=== PATIENT | male | born 1950 | race Caucasian/White ===

== ENCOUNTER 2020-08-28 08:20 | Outpatient (REF) | payer MEDICARE, SELFPAY ==
[2020-08-28 09:18] LABS: Hematocrit 43.9 % (42-52); Hemoglobin 14.5 g/dl (14.0-18.0); Mean Corpuscular Hemoglobin 28.6 pg (27.0-33.0); Mean Corpuscular Volume 86.6 fL (80-98); Mean Platelet Volume 11.1 fL (9.4-12.4); Platelet Count 191 X10*3/uL (160-400); Red Blood Count 5.07 X10*6/uL (4.60-5.80); Red Cell Distribution Width 14.1 % (11.0-16.0); White Blood Count 8.9 X10*3/uL (4.8-10.8)
[2020-08-28 09:35] LABS: Estimated Average Glucose 169 mg/dL; Hemoglobin A1c % 7.5 %
[2020-08-28 09:43] LABS: Alanine Aminotransferase 30 U/L (0-40); Albumin Level 4.1 g/dL (3.5-5.0); Alkaline Phosphatase 148 U/L (39-117); Anion Gap 13 (12-20); Aspartate Amino Transferase 15 U/L (5-37); Bilirubin Total 0.6 mg/dL (0.0-1.0); Blood Urea Nitrogen 14 mg/dL (9-16); Carbon Dioxide 24 mmol/L (22-29); Chloride 108 mmol/L (96-108); Cholesterol 158 mg/dL; Estimated Glomerular Filt Rate > 60; Glucose Fasting 140 mg/dL (60-99); HDL Cholesterol 42 mg/dL; LDL Cholesterol Calculated 93 mg/dl; Potassium 4.1 mmol/L (3.3-5.1); Sodium 141 mmol/L (135-145); Total Protein 7.1 g/dL (6.5-8.0); Triglycerides 118 mg/dL
[2020-08-28 10:04] LABS: Prostate Specific Antigen Scr 2.43 ng/mL (<0.05-4.0)
[2020-08-28 10:23] LABS: Creatinine Urine 130.71 mg/dL; Microalbum/Creatinine Ratio Ur 3.8 ug/mg cr
== END 2020-08-28 08:21 | disposition home or self-care (01) ==
LOC: HO.LAB 08:20
PROVIDERS: PCP Internal Medicine; Visit Provider Internal Medicine
DX: Z12.5 Encounter for screening for malignant neoplasm of prostate (principal); R00.2 Palpitations; R73.9 Hyperglycemia, unspecified
CPT/HCPCS: 36415; 80053; 80061; 82043; 83036; 84153; 85027

== ENCOUNTER → 2020-09-09 08:36 | Outpatient (REF) | payer MEDICARE, SELFPAY ==
--- NOTE | 2020-09-09 08:39 | CA_ITS ---
Transthoracic Echocardiogram Patient (Last, First, Middle): Mary Ann Joyce, Gender: Male Date of : 1950 Age: 70 Procedure Date: 09/09/2020 Procedure Type: Transthoracic Echocardiogram Location: OP Height: 165.1 cm Weight: 82.56 kg BSA: 1.90 m2 Heart Rate: bpm BP: 140 / 90 mmHg Disc Pad Knockout Worker: CRICKET Referring MD: Radha Culp MD Burnisher And Bumper: Chaz Gordon MD Symptoms: I45.10 - Unspecified right bundle-branch block Study Quality: Fair ECG Rhythm: Sinus Conclusions: - 1. Normal LV systolic function with impaired relaxation filling pattern 2. Normal cardiac valvular Doppler 3. Normal RV systolic pressure 4. No pericardial effusion Findings Left Ventricle Normal left ventricular size, thickness, and systolic function. The visually estimated ejection fraction is between 60-65%. Spectral Doppler is indicative of an impaired relaxation filling pattern. E/E prime ratio is between 8 and 15 consistent with indeterminate filling pressures. Right Ventricle Normal right ventricular cavity size and systolic function. Atria The left atrium is normal in size. There is no evidence of interatrial shunt. The right atrium is normal in size. Aortic Valve The aortic valve structure and function is likely normal. There is no aortic valve stenosis. There is no aortic valve regurgitation. Mitral Valve Likely normal mitral valve structure and function. There is trace mitral valve regurgitation. There is no mitral valve stenosis. Pulmonic Valve The pulmonic valve was not well visualized. Tricuspid Valve Likely normal tricuspid valve structure and function. There is trace tricuspid valve regurgitation. The right ventricular systolic pressure is normal. The right ventricular systolic pressure is 17 mmHg. Normal right atrial pressure. There is no evidence of pulmonary hypertension. Great Vessels All visible segments of the aorta are normal in size. The pulmonary artery was not well visualized. Venous The inferior vena cava is normal in size and collapses greater than 50% with inspiration. Pericardium/Pleural There is no evidence of pericardial effusion. Prior Study Comparison No previous study in the last 5 years for comparison Measurements 2D Linear Measurements IVSd: 1.22 0.6-0.9/0.6-1.0 cm LVIDd: 4.90 3.9-5.3/4.2-5.9 cm LVIDd Index: 2.58 2.4-3.2/2.2-3.1 cm/m2 LVIDs: 2.68 2.0-3.6 cm LVPWd: 1.07 0.7-1.1 cm Ao Root: 2.80 2.1-3.5 cm LA Diam: 3.90 2.7-3.8/3.0-4.0 cm LAIDs Index: 2.05 1.5-2.3 cm/m2 LV Mass: 264.21 67-162/88-224 g LV Mass Index: 139.06 43-95/49-115 g/m2 LVOT Diam: 2.00 3.0+(-)1.3 cm 2D Systolic Function EF 4C: 72.00 >55% EF 2C: 58.40 >55% EF BiP: 65.80 >55% Mitral Valve MV Pk E: 0.55 MV PK A: 0.90 MV Decel Time: 256.00 E/A: 0.60 E'Lateral: 6.38 E'Medial: 5.51 E/E' Med: 10.00 E/E' Lat: 8.70 PHT: 75.00 MVA PHT: 2.93 Decel [place]: 2.16 Aortic Valve AoV Pk Jesus: 1.33 AoV Pk Grad: 7.00 LVOT LVOT Pk Jesus: 1.02 LVOT Mn Jesus: 0.63 LVOT VTI: 0.21 LVOT Pk Grad: 4.00 LVOT Mn Grad: 2.00 LVOT Diam: 2.00 LVOT Area: 3.14 Diastolic Function MV Pk E: 0.55 MV Pk A: 0.90 E/A: 0.60 E'Medial: 5.51 E/E' Med: 10.00 E' Laterial: 6.38 E/E' Lat: 8.70 Tricuspid Valve TR Pk Jesus: 1.89 TR Pk Grad: 14.00 RA Press: 3.00 RVSP: 17.00 Great Vessels Aorta Ao Root-2D: 2.80 2.0-3.7 cm Ao Asc: 3.30 2.1-3.4 cm Updated in Other Vendor System with Status of Final Chaz Gordon MD electronically signed on 09/12/2020 12:28:13 PM with status of Final
== END ==
LOC: HO.CARD 08:36
PROVIDERS: PCP Internal Medicine; Visit Provider Internal Medicine
DX: I45.10 Unspecified right bundle-branch block (principal); I49.9 Cardiac arrhythmia, unspecified
CPT/HCPCS: 93306

== ENCOUNTER 2020-09-30 08:54 | Outpatient (REF) | payer MEDICARE, SELFPAY ==
--- NOTE | ~2020-09-30 | US_ITS ---
EXAMINATION: US ABDOMINAL AORTA CLINICAL INFORMATION: Family history of ischemic heart disease. COMPARISON: None. TECHNIQUE: Grayscale, color Doppler and spectral Doppler evaluation of the abdominal aorta. FINDINGS: The aorta is normal in caliber. The measurements of the aorta in maximum AP and transverse dimensions respectively are as follows: PROXIMAL: 1.8 x 2.2 cm. MID: 2.0 x 2.0 cm. DISTAL: 1.4 x 2.0 cm. The measurements of the common iliac arteries in maximum AP dimension are as follows: RIGHT COMMON ILIAC ARTERY: 1.6 x 1.8 cm. LEFT COMMON ILIAC ARTERY: 1.1 x 1.7 cm. US/US abdominal aortic aneurysm IMPRESSION: Negative for abdominal aortic aneurysm.
== END 2020-09-30 08:55 | disposition home or self-care (01) ==
LOC: HO.US 08:54
PROVIDERS: Visit Provider Internal Medicine
DX: Z13.6 Encounter for screening for cardiovascular disorders (principal); Z82.49 Family history of ischemic heart disease and other diseases of the circulatory system
CPT/HCPCS: 76706

== ENCOUNTER 2021-04-04 08:58 | Outpatient (REF) | payer MEDICARE, SELFPAY ==
[2021-04-04 12:08] LABS: Alanine Aminotransferase 31 U/L (0-40); Albumin Level 4.1 g/dL (3.5-5.0); Alkaline Phosphatase 133 U/L (39-117); Anion Gap 12 (12-20); Aspartate Amino Transferase 16 U/L (5-37); Bilirubin Total 0.5 mg/dL (0.0-1.0); Blood Urea Nitrogen 18 mg/dL (9-16); Calcium 9.3 mg/dL (8.4-10.2); Carbon Dioxide 26 mmol/L (22-29); Chloride 106 mmol/L (96-108); Cholesterol 159 mg/dL; Estimated Glomerular Filt Rate > 60; Glucose Fasting 140 mg/dL (60-99); HDL Cholesterol 41 mg/dL; LDL Cholesterol Calculated 90 mg/dl; Potassium 4.3 mmol/L (3.3-5.1); Sodium 140 mmol/L (135-145); Total Protein 7.2 g/dL (6.5-8.0); Triglycerides 141 mg/dL
[2021-04-04 12:12] LABS: Estimated Average Glucose 146 mg/dL; Hemoglobin A1c % 6.7 %
[2021-04-04 12:40] LABS: Creatinine Urine 208.41 mg/dL; Microalbum/Creatinine Ratio Ur 3.3 ug/mg cr
== END 2021-04-04 08:59 | disposition home or self-care (01) ==
LOC: HO.HMGCLDS 08:58
PROVIDERS: PCP Internal Medicine; Visit Provider Internal Medicine
DX: E78.5 Hyperlipidemia, unspecified (principal); I10 Essential (primary) hypertension; I45.10 Unspecified right bundle-branch block; R73.9 Hyperglycemia, unspecified
CPT/HCPCS: 36415; 80053; 80061; 82043; 83036

== ENCOUNTER → 2021-08-05 12:57 | Outpatient (BNVA) | payer MEDICARE, SELFPAY | PROVIDERS: PCP Internal Medicine; Referring Provider Internal Medicine; Visit Provider Nurse Practitioner Family | DX: Z12.11 Encounter for screening for malignant neoplasm of colon (principal); K59.00 Constipation, unspecified | CPT/HCPCS: 99202 ==

== ENCOUNTER 2021-08-27 08:04 | Outpatient (REF) | payer MEDICARE, SELFPAY ==
[2021-08-27 09:35] LABS: Estimated Average Glucose 151 mg/dL; Hemoglobin A1c % 6.9 %
[2021-08-27 10:00] LABS: Alanine Aminotransferase 28 U/L (0-40); Alkaline Phosphatase 128 U/L (39-117); Anion Gap 13 (12-20); Aspartate Amino Transferase 18 U/L (5-37); Bilirubin Total 0.7 mg/dL (0.0-1.0); Blood Urea Nitrogen 16 mg/dL (9-16); Calcium 9.6 mg/dL (8.4-10.2); Carbon Dioxide 24 mmol/L (22-29); Chloride 108 mmol/L (96-108); Cholesterol 160 mg/dL; Estimated Glomerular Filt Rate > 60; Glucose Fasting 136 mg/dL (60-99); HDL Cholesterol 38 mg/dL; LDL Cholesterol Calculated 95 mg/dl; Potassium 4.2 mmol/L (3.3-5.1); Sodium 141 mmol/L (135-145); Total Protein 6.9 g/dL (6.5-8.0); Triglycerides 139 mg/dL
== END 2021-08-27 08:05 | disposition home or self-care (01) ==
LOC: HO.LAB 08:04
PROVIDERS: PCP Internal Medicine; Visit Provider Internal Medicine
DX: E11.9 Type 2 diabetes mellitus without complications (principal); I10 Essential (primary) hypertension; E78.5 Hyperlipidemia, unspecified
CPT/HCPCS: 36415; 80053; 80061; 83036

== ENCOUNTER → 2021-09-26 14:00 | Outpatient (BNVA) | payer MEDICARE, SELFPAY | PROVIDERS: PCP Internal Medicine; Referring Provider Internal Medicine; Visit Provider Internal Medicine | DX: Z01.810 Encounter for preprocedural cardiovascular examination (principal); I45.10 Unspecified right bundle-branch block; Z51.81 Encounter for therapeutic drug level monitoring; Z79.899 Other long term (current) drug therapy | CPT/HCPCS: 93005; 99202 ==

== ENCOUNTER 2022-04-04 09:40 | Day surgery (SDC) | payer MEDICARE, SELFPAY ==
[2022-03-28 13:36] VITALS: BMI 29.3
--- NOTE | 2022-04-03 13:14 | HO.ANESPROP2 ---
Documented by User: Nicole Avila NP 04/03/22 13:15 HPI - Anesthesia Eval Consult details Narrative: 71yo M for Colonoscopy PMFSH Active Problems Active Problems: All Active Problems (Updated 09/26/21 @ 14:59 by Anderson Farrell MD) H/O hernia repair (Acute) Preoperative cardiovascular examination (Acute) Encounter for monitoring anti-arrhythmic therapy (Acute) Annual physical exam (Acute) Constipation (Acute) DM2 (diabetes mellitus, type 2) (Acute) FHx: abdominal aortic aneurysm (Acute) Hyperlipidemia (Acute) Arrhythmia (Acute) RBBB (Acute) HTN (hypertension) (Acute) Tobacco abuse (Acute) Hyperglycemia (Acute) Palpitations (Acute) Past Medical History Medical History (Updated 09/26/21 @ 14:59 by Anderson Farrell MD) Annual physical exam Arrhythmia Constipation DM2 (diabetes mellitus, type 2) FHx: abdominal aortic aneurysm HTN (hypertension) Hyperglycemia Hyperlipidemia Palpitations Panic attack RBBB Tobacco abuse Family History Family History Father Stroke Mother No problems noted. Surgical History Surgical History (Updated 10/07/21 @ 09:18 by Elis Brothers RN) H/O inguinal hernia repair Hx of colonoscopy Social History Social History Household Members Other:: , Housing: House Alcohol intake: current Alcohol intake frequency: holidays/special occasions only Patient Tobacco Use Status: Current everyday Tobacco user Tobacco use type: Cigarette Cigarettes Per Day: 7 Years Smoked: 50 e-Cigarette/Vaping Use: Never Used Use of substances other than those prescribed or required for medical reasons: No Are you DNR?: No Advance Directives: No Advance Directives Information Provided: Yes Current occupational status: retired Cognitive needs: No Hearing needs: No Vision needs: Yes Meds Allergies Allergy/AdvReac Type Severity Reaction Status Date / Time No Known Allergies Allergy Verified 09/26/21 14:05 Exam Exam Date and Time: April 03, 2022 1314 Height,Weight and Vital Signs: Height 5 ft 6 in Weight 82.554 kg Assessment and Plan Assessment Anesthesia Assessment: Chart Reviewed Documented by User: Brandy Lugo MD 04/04/22 10:28 [facility] Past Medical History Medical History (Updated 09/26/21 @ 14:59 by Anderson Farrell MD) Annual physical exam Arrhythmia Constipation DM2 (diabetes mellitus, type 2) FHx: abdominal aortic aneurysm HTN (hypertension) Hyperglycemia Hyperlipidemia Palpitations Panic attack RBBB Tobacco abuse Family History Family History Father Stroke Mother No problems noted. Family history of problems with anesthesia: No Surgical History Surgical History (Updated 10/07/21 @ 09:18 by Elis Brothers RN) H/O inguinal hernia repair Hx of colonoscopy History of Problems with Anesthesia: No Social History Social History Household Members Other:: , Housing: House Alcohol intake: current Alcohol intake frequency: holidays/special occasions only Patient Tobacco Use Status: Current everyday Tobacco user Tobacco use type: Cigarette Cigarettes Per Day: 7 Years Smoked: 50 e-Cigarette/Vaping Use: Never Used Use of substances other than those prescribed or required for medical reasons: No Are you DNR?: No Advance Directives: No Advance Directives Information Provided: Yes Current occupational status: retired Cognitive needs: No Hearing needs: No Vision needs: Yes Meds Allergies Allergy/AdvReac Type Severity Reaction Status Date / Time No Known Allergies Allergy Verified 09/26/21 14:05 Exam Airway Mallampati Class: II (Multiole loose including front top on left side) TM Dist: >3cm Neck ROM: Full Heart: rrr Lungs: cta Assessment and Plan Assessment Anesthesia Assessment: Anesthesia Plan Discussed Final Anesthetic Review Family History of Problems with Anesthesia: No History of Problems with Anesthesia: No NPO: Yes ASA Class: III Final Preanesthetic Review: No Changes in Pt Med Stat, Meds/Allgs Chart Reviewed and Consent Obtained/Reviewed Patient Risk: Intermediate Procedure Risk: Intermediate Anesthetic Plan Anesthetic Plan: MAC: Disposition: Standard PACU
[2022-04-04 10:28] LABS: Glucose, Whole Blood 144 mg/dL (60-115)
[2022-04-04] MEDS: Lactated Ringers 1,000 ML 100 ML IVCONT (10:37)
[2022-04-04 10:38] VITALS: BP 149/78; PULSE 68; RESP 16; TEMP 36.6; O2SAT 98
--- NOTE | 2022-04-04 11:01 | P.HPSUR_ITS ---
Pre-Procedural Eval Section A Date of Service: 04/04/22 Section B Chief Complaint: screening Relevant Family History (Specify if Yes): No Relevant Social History: Tobacco Use Present Medications: see Short Stay Collaborative assessment Medical History: Significant History (Arrhythmia Constipation DM2 (diabetes mellitus, type 2) FHx: abdominal aortic aneurysm HTN (hypertension) Hyperglycemia Hyperlipidemia Palpitations Panic attack RBBB Tobacco abuse) History of Previous Operations: Relevant previous surgery/procedure and date(s) (inguinal hernia repair ) Allergies: Allergies Allergy/AdvReac Type Severity Reaction Status Date / Time No Known Allergies Allergy Verified 09/26/21 14:05 Review of Systems Sugical H&P ROS: Negative: Constitution, Cardiovascular, Respiratory, Neurological, Psychiatric, Hem-Onc, Allergic/Immunologic, Gastrointestinal, Candy tourinary, Musculoskeletal, Integumentary, Endocrine and Eyes/Ears/Nose/Throat Exam Surgical H&P Exam: Normal: HEENT, Normal: Heart, Normal: Lungs, Normal: Extremities, Normal: Abdomen, Normal: Skin and Normal: Neurological Plan Diagnosis/Plan: Unchanged I have reviewed the history and physical and performed a pertinent physical examination on my patient. No changes have occurred unless specified.
--- NOTE | 2022-04-04 11:02 | P.OP_ITS ---
Operative Note Operative Note Date of Service: 04/04/22 Narrative: Operative Information Procedure Description: Colonoscopy Indication: screening Anesthesia: MAC COLONOSCOPY Instrument: Olympus variable stiffness adult scope 190L Colonoscopy Monitoring: Vital signs and clinical assessment, continuous EKG monitoring, Pulse oximetry, Carbon Dioxide monitoring and blood pressure monitoring were done throughout the procedure. Colon withdrawal time was 13 minutes. Procedure: The patient was placed in the left lateral decubitis position and pre-procedure medications were administered. After a digital rectal examination of the ano-rectum, the video colonoscope was inserted into the rectum and advanced through the colon to the cecum/TI. The colonoscope was slowly withdrawn in a retrograde panoramic fashion and the colon mucosa was carefully examined including a retroflexed view of the rectum. Findings and interventions are described below. Procedure Difficulty: easy Findings: Terminal Ileum-normal Cecum:normal Ascending Colon: x 2 sessile polyps removed with cold snare, measuring 9-13 mm. Large polyp with 2 clips placed for hemostasis Transverse Colon - 5-8 mm sessile polyp removed with cold forceps Descending Colon:normal Sigmoid Colon: normal Rectum: Retroflexion with medium sized internal hemorrhoids, grade 2 Anorectum - internal hemorrhoids seen at anal verge Colon preparation: [place] Bowel Preparation Scale Right colon; 2 Transverse colon: 2 Left colon; 2 (0 = Unprepared colon segment with mucosa not seen due to solid stool that cannot be cleared. 1 = Portion of mucosa of the colon segment seen, but other areas of the colon segment not well seen due to staining, residual stool and/or opaque liquid. 2 = Minor amount of residual staining, small fragments of stool and/or opaque liquid, but mucosa of colon segment seen well. 3 = Entire mucosa of colon segment seen well with no residual staining, small fragments of stool or opaque liquid) Impression and Post Procedure Diagnosis: polyps internal hemorrhoids Plan: High fiber diet leaflet Avoid straining at stool, epsom salts and sitz bath, anusol supps or cream Repeat Colonoscopy in 3 years or earlier if clinically indicated Above findings were reviewed with the patient and relevant handouts were provided if indicated.
[2022-04-04 11:40] VITALS: BP 118/63; PULSE 64; RESP 16; TEMP 36.2; O2SAT 95
[2022-04-04 11:55] VITALS: BP 95/69; PULSE 62; RESP 16; O2SAT 96
== END 2022-04-04 13:05 | disposition home or self-care (01) ==
PROVIDERS: PCP Internal Medicine; Visit Provider Internal Medicine Gastroenterology
PROC: 0DJD8ZZ Inspection of Lower Intestinal Tract, Via Natural or Artificial Opening Endoscopic (ICD-10-PCS; CPT 45378; principal; 2022-04-04 11:00)
DX: Z12.11 Encounter for screening for malignant neoplasm of colon (principal); D12.2 Benign neoplasm of ascending colon; K63.5 Polyp of colon; K64.1 Second degree hemorrhoids; K59.00 Constipation, unspecified; I45.10 Unspecified right bundle-branch block; I10 Essential (primary) hypertension; E78.5 Hyperlipidemia, unspecified; E11.9 Type 2 diabetes mellitus without complications; F17.210 Nicotine dependence, cigarettes, uncomplicated
CPT/HCPCS: 45385; 45380; 82947; 88305

== ENCOUNTER 2022-08-24 09:46 | Outpatient (REF) | payer MEDICARE, SELFPAY ==
[2022-08-24 10:51] LABS: Estimated Average Glucose 154 mg/dL
[2022-08-24 10:58] LABS: Alanine Aminotransferase 23 U/L (0-40); Albumin Level 4.1 g/dL (3.5-5.0); Alkaline Phosphatase 124 U/L (39-117); Anion Gap 13 (12-20); Aspartate Amino Transferase 18 U/L (5-37); Bilirubin Total 0.5 mg/dL (0.0-1.0); Blood Urea Nitrogen 13 mg/dL (9-16); Calcium 9.4 mg/dL (8.4-10.2); Carbon Dioxide 25 mmol/L (22-29); Chloride 110 mmol/L (96-108); Cholesterol 257 mg/dL; Estimated Glomerular Filt Rate > 60; Glucose Fasting 139 mg/dL (60-99); HDL Cholesterol 38 mg/dL; LDL Cholesterol Calculated 182 mg/dl; Potassium 4.5 mmol/L (3.3-5.1); Sodium 143 mmol/L (135-145); Total Protein 6.9 g/dL (6.5-8.0); Triglycerides 187 mg/dL
[2022-08-24 11:40] LABS: Microalbum/Creatinine Ratio Ur 4.5 ug/mg cr
== END 2022-08-24 09:47 | disposition home or self-care (01) ==
LOC: HO.LAB 09:46
PROVIDERS: PCP Internal Medicine; Visit Provider Internal Medicine
DX: E78.5 Hyperlipidemia, unspecified (principal); E11.9 Type 2 diabetes mellitus without complications
CPT/HCPCS: 36415; 80053; 80061; 82043; 83036

== ENCOUNTER 2022-11-20 08:30 | Outpatient (REF) | payer MEDICARE, SELFPAY ==
[2022-11-20 09:16] LABS: Estimated Average Glucose 140 mg/dL; Hemoglobin A1c % 6.5 %
== END 2022-11-20 08:31 | disposition home or self-care (01) ==
LOC: HO.LAB 08:30
PROVIDERS: PCP Internal Medicine; Visit Provider Internal Medicine
DX: E11.9 Type 2 diabetes mellitus without complications (principal); E78.5 Hyperlipidemia, unspecified; I10 Essential (primary) hypertension; Z72.0 Tobacco use
CPT/HCPCS: 36415; 80053; 80061; 82043; 83036; 85025

== ENCOUNTER 2022-11-29 11:20 | Outpatient (AMB) | payer MEDICARE, SELFPAY ==
[2022-11-29 11:45] VITALS: BP 130/78; PULSE 72; O2SAT 96; BMI 28.6
--- NOTE | 2022-11-29 11:45 | MHC.PC.OV ---
Vital Signs 11/29/22 11:45 Height 5 ft 6 in Weight 177 lb BMI 28.6 BP 130/78 Blood Pressure Location Lt brachial Position Sitting Pulse 72 Pulse Source Pulse Oximeter Pulse Oximetry (%) 96 Oxygen Delivery Method Room Air Intake Visit Reasons: Annual PE/DM Intake Note: Pt is here today for PE. Allergies No Known Allergies Allergy (Verified 11/29/22 11:46) Medication List - Last Reconciled 11/29/22 by Radha Culp MD amlodipine 10 mg PO DAILY atorvastatin 80 mg PO BEDTIME bisacodyl (Dulcolax (bisacodyl)) 10 mg (2 x 5 mg) PO ONCE 1 day ciclopirox 8% 1 appl topical BEDTIME 4 weeks metformin ER 750 mg PO DAILY omeprazole 20 mg PO DAILY polyethylene glycol 3350 (Miralax) 238 grams PO ONCE Tobacco use date assessed: 11/29/22 Dental Screening Dental Screen Date: 11/29/22 Did you have a dental visit in the last 12 months?: Yes Did you have a dental problem in the last 6 months where you did not have access to dental care?: No Was dental information given to patient?: Patient has dentist HPI Annual PE/DM HPI Details Patient presents for physical PFSH Medical History (Updated 11/29/22 @ 13:14 by Radha Culp MD) Annual physical exam Arrhythmia DM2 (diabetes mellitus, type 2) FHx: abdominal aortic aneurysm HTN (hypertension) Hyperlipidemia Panic attack RBBB Tobacco abuse Surgical History (Updated 08/30/22 @ 10:22 by Radha Culp MD) H/O inguinal hernia repair Hx of colonoscopy Family History Father Stroke Mother No problems noted. Social History Household Members Other:: , Housing: House Alcohol intake: current Alcohol intake frequency: holidays/special occasions only Patient Tobacco Use Status: Current everyday Tobacco user Tobacco use type: Cigarette Cigarettes Per Day: 7 Years Smoked: 50 e-Cigarette/Vaping Use: Never Used Current occupational status: retired Cognitive needs: No Hearing needs: No Vision needs: Yes Questionnaire Thrive Questionnaire Date Thrive assessed: 08/30/22 JADEN-7 AMB Questionnaire JADEN-7 Date JADEN - 7 assessed: 08/30/22 Source: Developed by Drs. Dani Giordano, Effie Masterson, Tio Mclean and colleagues, with an educational nika from [employer]. Review of Systems Const All systems reviewed & are unremarkable except as noted in HPI and below Reports no additional complaints Eyes Reports no additional complaints ENT Reports no additional complaints Card Reports no additional complaints Resp Reports no additional complaints GI Reports no additional complaints Reports no additional complaints Physical exam (Primary Care) Vital Signs: Last Vital Signs Pulse 72 11/29/22 11:45 BP 130/78 11/29/22 11:45 Pulse Ox 96 11/29/22 11:45 Oxygen Delivery Method Room Air 11/29/22 11:45 BMI result Body Mass Index 28.6 Tobacco/Smoking Status: Tobacco use Status Tobacco use date assessed 11/29/22 11/29/22 11:46 Patient Tobacco Use Status Current everyday Tobacco 11/29/22 11:46 Tobacco use type Cigarette 11/29/22 11:46 e-Cigarette/Vaping Use Never Used 11/29/22 11:46 Thrive Assessment: Date of Thrive Assessment Date Thrive assessed 08/30/22 11/29/22 11:46 Const General: no acute distress HENMT Ears: hearing grossly normal bilaterally Mouth: Normal oral and palatal mucosa present Eyes General: appearance normal, both eyes and all related structures Neck Neck: Yes no lymphadenopathy and Yes supple Resp Effort & Inspection: normal respiratory effort Auscultation: clear to auscultation bilaterally Cardio Rhythm: regular rhythm Heart sounds: S1 normal heart sound present and S2 normal heart sound present GI Inspection: Yes normal to inspection Palpation (GI): Soft to palpation Percussion: Yes normal to percussion Auscultation: normal bowel sounds Extrem General: Yes no clubbing, cyanosis or edema Assessment and Plan Assessment & Plan (1) FHx: abdominal aortic aneurysm: Comment: negative US for AAA 2020 Code(s): Z82.49 - Family history of ischemic heart disease and other diseases of the circulatory system (2) DM2 (diabetes mellitus, type 2): Code(s): E11.9 - Type 2 diabetes mellitus without complications Plan: A1c is 6.5, continue metformin ADA diet regular exercise follow-up in 6 months with a fasting labs before (3) Hyperlipidemia: Code(s): E78.5 - Hyperlipidemia, unspecified Plan: Continue statin (4) HTN (hypertension): Code(s): I10 - Essential (primary) hypertension Plan: Continue amlodipine, patient refused to start ACEI Orders: Orders Comprehensive [place]. Panel Fast 6 Months E11.9 - Type 2 diabetes mellitus without complications, E78.5 - Hyperlipidemia, unspecified, I10 - Essential (primary) hypertension Hemoglobin A1c 6 Months E11.9 - Type 2 diabetes mellitus without complications, E78.5 - Hyperlipidemia, unspecified, I10 - Essential (primary) hypertension Lipid Panel 6 Months E11.9 - Type 2 diabetes mellitus without complications, E78.5 - Hyperlipidemia, unspecified, I10 - Essential (primary) hypertension Microalbumin, Random (w Creat) 6 Months E11.9 - Type 2 diabetes mellitus without complications, E78.5 - Hyperlipidemia, unspecified, I10 - Essential (primary) hypertension Medications: New nicotine (Nicotrol) 1 inh inhalation Q2-4H PRN 168 ea 1RF nicotine cravings Coding Level of Care Code Est Pt Prev Care >65y(27404) Diagnoses FHx: abdominal aortic aneurysm Z82.49 DM2 (diabetes mellitus, type 2) E11.9 Hyperlipidemia E78.5 HTN (hypertension) I10
== END 2022-11-29 13:15 | disposition home or self-care (01) ==
PROVIDERS: Visit Provider Internal Medicine
DX: Z00.00 Encounter for general adult medical examination without abnormal findings (principal); Z82.49 Family history of ischemic heart disease and other diseases of the circulatory system; E11.9 Type 2 diabetes mellitus without complications; I10 Essential (primary) hypertension; E78.5 Hyperlipidemia, unspecified
CPT/HCPCS: 99397

== ENCOUNTER 2023-01-16 09:12 | Outpatient (AMB) | payer MEDICARE, SELFPAY ==
--- NOTE | 2023-01-16 10:02 | AM.OFFWIN_ITS ---
Intake Vital Signs 01/16/23 10:03 Height 5 ft 6 in Weight 180 lb BMI 29.0 BP 120/76 Blood Pressure Location Rt brachial Position Sitting Pulse 68 Pulse Source Pulse Oximeter Temp 97.4 F Temp Source Temporal Artery Scan Pulse Oximetry (%) 98 Oxygen Delivery Method Room Air Intake Visit Reasons: EST/right arm numbness(lobby) Intake Note: Patient here for left arm numbness which has been going on for about 7-8 days. He is wondering if it could stress related as he use to have panic attacks. Patient Tobacco Use Status: Current everyday Tobacco user Allergies No Known Allergies Allergy (Verified 01/16/23 10:04) Do you need a note to return to daycare/school/sports/work: No HPI EST/right arm numbness(lobby) HPI Details 72-year-old gentleman presents today with an 8 day history of a sensation of left arm heaviness. He reports this extends from his left shoulder, down to his left wrist. He denies any numbness, tingling, or weakness. He denies any trauma or incident which incited symptoms. He denies any neck pain or injury. He denies any shortness of breath, chest pain, palpitations, or any other symptoms. [facility] Medical History Annual physical exam Arrhythmia DM2 (diabetes mellitus, type 2) FHx: abdominal aortic aneurysm HTN (hypertension) Hyperlipidemia Panic attack RBBB Tobacco abuse Surgical History H/O inguinal hernia repair Hx of colonoscopy Family History Father Stroke Mother No problems noted. Social History Household Members Other:: , Housing: House Alcohol intake: current Alcohol intake frequency: holidays/special occasions only Patient Tobacco Use Status: Current everyday Tobacco user Tobacco use type: Cigarette Cigarettes Per Day: 7 Years Smoked: 50 e-Cigarette/Vaping Use: Never Used Current occupational status: retired Cognitive needs: No Hearing needs: No Vision needs: Yes Review of Systems Const All systems reviewed & are unremarkable except as noted in HPI and below ENT Reports Normal hearing present Neuro Reports Normal hearing present Physical Exam Vital Signs: Last Vital Signs Temp 97.4 F 01/16/23 10:03 Pulse 68 01/16/23 10:03 BP 120/76 01/16/23 10:03 Pulse Ox 98 01/16/23 10:03 Oxygen Delivery Method Room Air 01/16/23 10:03 BMI result Body Mass Index 29.0 Const General: cooperative, healthy appearing, comfortable and no acute distress Orientation/consciousness: patient oriented x3 HEENT Head: Yes normal to inspection Eyes Pupils: Equal, round and reactive pupils present Neck Other: Negative Spurling's Neck: Yes full ROM and Yes no lymphadenopathy Resp Effort & Inspection: normal respiratory effort and able to speak in complete sentences Auscultation: clear to auscultation bilaterally Cardio Jugular venous distension: no JVD Palpation: normal PMI Rate: regular rate Rhythm: regular rhythm Skin General skin exam: no rashes or lesions noted Neuro General: patient oriented x3, gait normal, tone normal, Normal light touch and pain sensation, no focal motor deficits, CN's II-XI intact bilaterally and deep tendon reflexes 2+ bilaterally Cranial nerves: Yes Equal, round and reactive pupils present, Yes Normal accommodation reflex present, Yes Bilaterally intact EOM present, Yes Normal facial strength present, Yes Midline tongue present and Yes Normal hearing present Cognition (Neuro): normal cognition Motor exam (neuro): 5/5 motor strength present throughout and Normal motor muscle tone present throughout Extrem General: Yes full ROM and Yes capillary refill normal Left upper extremity: no joint enlargement and shoulder/upper arm Details: inspection abnormal and normal ROM Psych Appearance: grossly normal Mental Status: mental status grossly normal Speech and movement: Normal speech and movement present Assessment & Plan Assessment & Plan (1) Arm heaviness: Code(s): R29.898 - Other symptoms and signs involving the musculoskeletal system Plan: Patient with reported 8 day history of intermittent left arm sensation of heaviness. His neurological and vascular assessment is normal on exam today. NIH scale is 0. Vitals are normal. I will notify Dr. Culp, patient's PCP for p ossible neuro referral. I discussed with patient that if the symptoms recur and do not resolve, or if symptoms worsen or new symptoms develop, he should go to the ED for evaluation. He verbalizes understanding and agrees to plan. Coding Level of Care Code Est Pt Level 3 (75158) Diagnoses Arm heaviness R29.898
[2023-01-16 10:03] VITALS: BP 120/76; PULSE 68; TEMP 36.3; O2SAT 98; BMI 29.0
== END 2023-01-16 10:43 | disposition home or self-care (01) ==
PROVIDERS: PCP Internal Medicine; Visit Provider Nurse Practitioner Family
DX: R29.898 Other symptoms and signs involving the musculoskeletal system (principal)
CPT/HCPCS: 99213

== ENCOUNTER 2023-02-22 12:16 | Outpatient (AMB) | payer MEDICARE, SELFPAY ==
--- NOTE | 2023-02-22 12:30 | MHC.PC.OV ---
Vital Signs 02/22/23 12:31 Height 5 ft 6 in Weight 181 lb BMI 29.2 BP 120/80 Blood Pressure Location Rt brachial Position Sitting Pulse 80 Pulse Source Pulse Oximeter Pulse Oximetry (%) 97 Oxygen Delivery Method Room Air Intake Visit Reasons: Follow up on arm numbness Intake Note: Pt is here today for a follow up visit on pain and heaviness in his L arm. Allergies No Known Allergies Allergy (Verified 02/22/23 12:34) Medication List - Last Reconciled 02/22/23 by Radha Culp MD amlodipine 10 mg PO DAILY atorvastatin 80 mg PO BEDTIME bisacodyl (Dulcolax (bisacodyl)) 10 mg (2 x 5 mg) PO ONCE 1 day ciclopirox 8% 1 appl topical BEDTIME 4 weeks metformin ER 750 mg PO DAILY nicotine (Nicotrol) 1 inh inhalation Q2-4H PRN omeprazole 20 mg PO DAILY polyethylene glycol 3350 (Miralax) 238 grams PO ONCE Tobacco use date assessed: 11/29/22 HPI Follow up on arm numbness HPI Details Pt c/o chronic L hand pain and numbness for a few weeks worse at night. Hypertension hyperlipidemia and type 2 diabetes are controlled on current medications. [facility] Medical History Annual physical exam DM2 (diabetes mellitus, type 2) FHx: abdominal aortic aneurysm Arrhythmia RBBB Tobacco abuse Panic attack Hyperlipidemia HTN (hypertension) Surgical History Hx of colonoscopy H/O inguinal hernia repair Family History Father Stroke Mother No problems noted. Social History Household Members Other:: , Housing: House Alcohol intake: current Alcohol intake frequency: holidays/special occasions only Patient Tobacco Use Status: Current everyday Tobacco user Tobacco use type: Cigarette Cigarettes Per Day: 7 Years Smoked: 50 e-Cigarette/Vaping Use: Never Used Current occupational status: retired Cognitive needs: No Hearing needs: No Vision needs: Yes Questionnaire Thrive Questionnaire Date Thrive assessed: 08/30/22 JADEN-7 AMB Questionnaire JADEN-7 Date JADEN - 7 assessed: 08/30/22 Source: Developed by Drs. Dani Giordano, Effie Masterson, Tio Mclean and colleagues, with an educational nika from [employer]. Review of Systems Const All systems reviewed & are unremarkable except as noted in HPI and below Reports no additional complaints Eyes Reports no additional complaints ENT Reports no additional complaints Card Reports no additional complaints Resp Reports no additional complaints GI Reports no additional complaints Reports no additional complaints Physical exam (Primary Care) Vital Signs: Last Vital Signs Pulse 80 02/22/23 12:31 BP 140/80 H 02/22/23 12:31 Pulse Ox 97 02/22/23 12:31 Oxygen Delivery Method Room Air 02/22/23 12:31 BMI result Body Mass Index 29.2 Tobacco/Smoking Status: Tobacco use Status Tobacco use date assessed 11/29/22 02/22/23 12:30 Patient Tobacco Use Status Current everyday Tobacco 02/22/23 12:30 Tobacco use type Cigarette 02/22/23 12:30 e-Cigarette/Vaping Use Never Used 02/22/23 12:30 Thrive Assessment: Date of Thrive Assessment Date Thrive assessed 08/30/22 02/22/23 12:30 Const General: no acute distress HENMT Ears: hearing grossly normal bilaterally Mouth: Normal oral and palatal mucosa present Resp Effort & Inspection: normal respiratory effort Auscultation: clear to auscultation bilaterally Cardio Rhythm: regular rhythm Heart sounds: S1 normal heart sound present and S2 normal heart sound present Extrem Right upper extremity: wrist (Tinel's positive L wrist) Assessment and Plan Assessment & Plan (1) Carpal tunnel syndrome of left wrist: Code(s): G56.02 - Carpal tunnel syndrome, left upper limb Plan: Obtain nerve conduction study to evaluate (2) HTN (hypertension): Code(s): I10 - Essential (primary) hypertension Plan: Continue current medications (3) DM2 (diabetes mellitus, type 2): Code(s): E11.9 - Type 2 diabetes mellitus without complications Plan: Continue ADA diet and metformin (4) Hyperlipidemia: Code(s): E78.5 - Hyperlipidemia, unspecified Plan: Continue statin Orders: Orders NE nerve conduction velocity Today G56.02 - Carpal tunnel syndrome, left upper limb Coding Level of Care Code Est Pt Level 4 (86638) Diagnoses Carpal tunnel syndrome of left wrist G56.02 HTN (hypertension) I10 DM2 (diabetes mellitus, type 2) E11.9 Hyperlipidemia E78.5
[2023-02-22 12:31] VITALS: BP 120/80; PULSE 80; O2SAT 97; BMI 29.2
== END 2023-02-22 13:13 | disposition home or self-care (01) ==
PROVIDERS: PCP Internal Medicine; Visit Provider Internal Medicine
DX: G56.02 Carpal tunnel syndrome, left upper limb (principal); I10 Essential (primary) hypertension; E11.9 Type 2 diabetes mellitus without complications; E78.5 Hyperlipidemia, unspecified
CPT/HCPCS: 99214

== ENCOUNTER 2023-03-01 10:14 | Outpatient (REF) | payer MEDICARE, SELFPAY ==
--- NOTE | 2023-03-01 10:18 | EMG_ITS ---
Left median and ulnar, motor and sensory studies were performed. Left radial sensory study was performed and paraspinal muscles were tested with a needle. IMPRESSION: 1. Yvns-jn-xsehyavv left median neuropathy across carpal tunnel. 2. Ozon-ru-nrztowfc left ulnar neuropathy across cubital tunnel. MD ISAURO Fajardo/LARISA / [phone]
== END 2023-03-01 10:15 | disposition home or self-care (01) ==
LOC: HO.NEURO 10:14
PROVIDERS: Visit Provider Internal Medicine
DX: G56.02 Carpal tunnel syndrome, left upper limb (principal)
CPT/HCPCS: 95886; 95909

== ENCOUNTER 2023-12-03 11:29 | Outpatient (AMB) | payer MEDICARE, SELFPAY ==
[2023-12-03 11:43] VITALS: BP 120/78; PULSE 73; O2SAT 97; BMI 29.0
--- NOTE | 2023-12-03 11:43 | A.OFFPC_ITS ---
Vital Signs 12/03/23 11:43 Height 5 ft 6 in Weight 180 lb BMI 29.0 BP 120/78 Blood Pressure Location Lt brachial Position Sitting Pulse 73 Pulse Source Pulse Oximeter Pulse Oximetry (%) 97 Oxygen Delivery Method Room Air Intake Visit Reasons: Annual PE Intake Note: Pt is here for his annual PE Allergies No Known Allergies Allergy (Verified 12/03/23 12:07) Medication List - Last Reconciled 12/03/23 by Radha Culp MD amlodipine 10 mg PO DAILY atorvastatin 80 mg PO BEDTIME bisacodyl (Dulcolax (bisacodyl)) 10 mg (2 x 5 mg) PO ONCE 1 day ciclopirox 8% 1 appl topical BEDTIME 4 weeks metformin ER 750 mg PO DAILY nicotine (Nicotrol) 1 inh inhalation Q2-4H PRN omeprazole 20 mg PO DAILY polyethylene glycol 3350 (Miralax) 238 grams PO ONCE Tobacco use date assessed: 12/03/23 Fall risk assessment: No Falls in past year Last assessed Fall Risk: 12/03/23 Dental Screening Dental Screen Date: 12/03/23 Did you have a dental visit in the last 12 months?: Yes Did you have a dental problem in the last 6 months where you did not have access to dental care?: No Was dental information given to patient?: Patient has dentist HPI Annual PE HPI Details Pt presents for PE. HTN , hyperlipid, DM 2 stable on meds. Pt c/o chronic R knee pain for a few months, worse when walking. Patient denies any injury or soft tissue swelling. [facility] Medical History (Updated 12/03/23 @ 12:51 by Radha Culp MD) Annual physical exam DM2 (diabetes mellitus, type 2) FHx: abdominal aortic aneurysm Arrhythmia RBBB Tobacco abuse Panic attack Hyperlipidemia HTN (hypertension) Surgical History Hx of colonoscopy H/O inguinal hernia repair Family History Father Stroke Mother No problems noted. Social History Household Members Other:: , Housing: House Alcohol intake: current Alcohol intake frequency: holidays/special occasions only Patient Tobacco Use Status: Current everyday Tobacco user Tobacco use type: Cigarette Cigarettes Per Day: 7 Years Smoked: 50 e-Cigarette/Vaping Use: Never Used service: No Current occupational status: retired Current occupational exposures/hazards: No Cognitive needs: No Hearing needs: No Vision needs: Yes Questionnaire PHQ-9 Over the last 2 weeks, how often have you been bothered by any of the following problems? 1. Little interest or pleasure in doing things: not at all 2. Feeling down, depressed, or hopeless: not at all 3. Trouble falling or staying asleep, or sleeping too much: not at all 4. Feeling tired or having little energy: not at all 5. Poor appetite or overeating: not at all 6. Feeling bad about yourself - or that you are a failure or have let yourself or your family down: not at all 7. Trouble concentrating on things, such as reading the newspaper or watching television: not at all 8. Moving or speaking so slowly that other people could have noticed. Or the opposite - being so fidgety or restless that you have been moving around a lot more than usual: not at all 9. Thoughts that you would be better off or of hurting yourself in some way: not at all Total score: 0 Depression Screening Interpretation: Negative Depression Screening Done: Yes 78265 - PHQ-9 Billing: Yes Source: Developed by Drs. Dani Giordano, Effie Masterson, Tio Mclean and colleagues, with an educational nika from [employer]. Thrive Questionnaire Date Thrive assessed: 12/03/23 I am a: Patient What is your living situation today?: I choose not to answer this question Within the past 12 months, did the food you bought not last and you didn't have the money to get more?: I choose not to answer this question Within the past 12 months, did you worry whether your food would run out before you got money to buy more?: I choose not to answer this question Do you have trouble paying for medicines?: I choose not to answer this question Do you have trouble getting transportation to medical appointments?: I choose not to answer this question Do you have trouble paying your heating and electricity bill?: I choose not to answer this question Do you have trouble taking care of your child, family member or friend?: I choose not to answer this question Do you have trouble with day-to-day activities such as bathing, preparing meals, shopping, managing finances, etc.?: I choose not to answer this question Are you currently unemployed and looking for a job?: I choose not to answer this question Are you interested in more education?: I choose not to answer this question Please select the resources that you would like help with: Housing/[facility] Currently or been in a relationship where the following occur: I choose not to answer THRIVE Score: 0 AUDIT C Alcohol Use Questionnaire (AUDIT-C) 1. How often do you have a drink containing alcohol?: Never Total Score: 0 JADEN-7 AMB Questionnaire JADEN-7 Date JADEN - 7 assessed: 12/03/23 Feeling nervous, anxious, or on edge: 0 = Not at all Not being able to stop or control worryin = Not at all Worrying too much about different things: 0 = Not at all Trouble relaxin = Not at all Being so restless that it is hard to sit still: 0 = Not at all Becoming easily annoyed or irritable: 0 = Not at all Feeling afraid as if something awful might happen: 0 = Not at all Total JADEN-7 score (0-4 normal; 5-9 mild; 10-14 moderate; 15-21 severe): 0 Source: Developed by Drs. Dani Giordano, Effie Masterson, Tio Mclean and colleagues, with an educational nika from [employer]. JADEN-7 Assessment Billing JADEN-7 Assessment Tool: JADEN-7 Assessment 30192 Review of Systems Const All systems reviewed & are unremarkable except as noted in HPI and below Eyes Reports no additional complaints ENT Reports no additional complaints Card Reports no additional complaints Resp Reports no additional complaints GI Reports no additional complaints Physical exam (Primary Care) Vital Signs: Last Vital Signs Pulse 73 12/03/23 11:43 BP 184/104 H 12/03/23 11:43 Pulse Ox 97 12/03/23 11:43 Oxygen Delivery Method Room Air 12/03/23 11:43 BMI result Body Mass Index 29.0 Tobacco/Smoking Status: Tobacco use Status Tobacco use date assessed 12/03/23 12/03/23 12:12 Patient Tobacco Use Status Current everyday Tobacco 12/03/23 11:43 Tobacco use type Cigarette 12/03/23 11:43 e-Cigarette/Vaping Use Never Used 12/03/23 11:43 PHQ-9: PHQ-9 Score PHQ-9: Total score 0 12/03/23 12:12 Depression Screening Interpretation: Negative Thrive Assessment: Date of Thrive Assessment Date Thrive assessed 12/03/23 12/03/23 12:12 Currently or been in a relationship where the following occur: I choose not to answer Const General: no acute distress HENMT Head: Yes normal to inspection Face and sinus: Yes normal facial exam Throat: Yes posterior oropharynx normal Eyes General: appearance normal, both eyes and all related structures Neck Neck: Yes supple Resp Effort & Inspection: normal respiratory effort Auscultation: clear to auscultation bilaterally Cardio Rhythm: regular rhythm Heart sounds: S1 normal heart sound present and S2 normal heart sound present GI Inspection: Yes normal to inspection Palpation (GI): Soft to palpation Percussion: Yes normal to percussion Auscultation: normal bowel sounds Extrem Other: slightly decreased range of motion of the right knee, no soft tissue swelling erythema or warmth Assessment and Plan Assessment & Plan (1) Knee pain, right: Code(s): M25.561 - Pain in right knee Plan: Check x-ray and referred to physical therapy (2) Annual physical exam: Code(s): Z00.00 - Encounter for general adult medical examination without abnormal findings Plan: Well-balanced diet regular physical activity discussed with the patient he will return for fasting blood work this week. Patient is up-to-date with colonoscopy (3) DM2 (diabetes mellitus, type 2): Code(s): E11.9 - Type 2 diabetes mellitus without complications Plan: ADA diet regular exercise discussed with the patient continue metformin check A1c (4) Tobacco abuse: Comment: Patient declined referral to lung cancer screening program 08/10, 11/2023 Code(s): Z72.0 - Tobacco use Plan: Tobacco quitting discussed with the patient (5) Arrhythmia: Comment: Echo nl EF, Nl valves 08/2020, Sotalol discontinued by cardiology 10/09 Code(s): I49.9 - Cardiac arrhythmia, unspecified (6) Hyperlipidemia: Code(s): E78.5 - Hyperlipidemia, unspecified Plan: Continue statin (7) HTN (hypertension): Comment: White coat syndrome Code(s): I10 - Essential (primary) hypertension Plan: Continue Amlodipine Orders: Orders PT Evaluation and Treatment Today M25.561 - Pain in right knee Complete Blood Count Auto Diff Today E11.9 - Type 2 diabetes mellitus without complications, E78.5 - Hyperlipidemia, unspecified, I10 - Essential (primary) hypertension, I49.9 - Cardiac arrhythmia, unspecified, Z00.00 - Encounter for general adult medical examination without abnormal findings Lipid Panel Today E11.9 - Type 2 diabetes mellitus without complications, E78.5 - Hyperlipidemia, unspecified, I10 - Essential (primary) hypertension, I49.9 - Cardiac arrhythmia, unspecified, Z00.00 - Encounter for general adult medical examination without abnormal findings IRON PROFILE Today E11.9 - Type 2 diabetes mellitus without complications, E78.5 - Hyperlipidemia, unspecified, I10 - Essential (primary) hypertension, I49.9 - Cardiac arrhythmia, unspecified, Z00.00 - Encounter for general adult medical examination without abnormal findings Complete Blood Count Auto Diff 6 Months E11.9 - Type 2 diabetes mellitus without complications, E78.5 - Hyperlipidemia, unspecified, I10 - Essential (primary) hypertension, Z00.00 - Encounter for general adult medical examination without abnormal findings Lipid Panel 6 Months E11.9 - Type 2 diabetes mellitus without complications, E78.5 - Hyperlipidemia, unspecified, I10 - Essential (primary) hypertension, Z00.00 - Encounter for general adult medical examination without abnormal findings Hemoglobin A1c 6 Months E11.9 - Type 2 diabetes mellitus without complications, E78.5 - Hyperlipidemia, unspecified, I10 - Essential (primary) hypertension, Z00.00 - Encounter for general adult medical examination without abnormal findings Microalbumin, Random (w Creat) Today E11.9 - Type 2 diabetes mellitus without complications, E78.5 - Hyperlipidemia, unspecified, I10 - Essential (primary) hypertension, Z00.00 - Encounter for general adult medical examination without abnormal findings XR knee RT 2V Today M25.561 - Pain in right knee Comprehensive [place]. Panel Fast Today E11.9 - Type 2 diabetes mellitus without complications, E78.5 - Hyperlipidemia, unspecified, I10 - Essential (primary) hypertension, I49.9 - Cardiac arrhythmia, unspecified, Z00.00 - Encounter for general adult medical examination without abnormal findings PSA,Total (Free>4and<10) Today E11.9 - Type 2 diabetes mellitus without complications, E78.5 - Hyperlipidemia, unspecified, I10 - Essential (primary) hypertension, I49.9 - Cardiac arrhythmia, unspecified, Z00.00 - Encounter for general adult medical examination without abnormal findings Comprehensive [place]. Panel Fast 6 Months E11.9 - Type 2 diabetes mellitus without complications, E78.5 - Hyperlipidemia, unspecified, I10 - Essential (primary) hypertension, Z00.00 - Encounter for general adult medical examination without abnormal findings Microalbumin, Random (w Creat) 6 Months E11.9 - Type 2 diabetes mellitus without complications, E78.5 - Hyperlipidemia, unspecified, I10 - Essential (primary) hypertension, Z00.00 - Encounter for general adult medical examination without abnormal findings Medications: Refilled metformin ER 750 mg PO DAILY 90 tabs 3RF omeprazole 20 mg PO DAILY 90 caps 3RF amlodipine 10 mg PO DAILY 90 tabs 3RF atorvastatin 80 mg PO BEDTIME 90 tabs 3RF Coding Level of Care Code Est Pt Prev Care >65y(82388) Diagnoses Knee pain, right M25.561 Annual physical exam Z00.00 DM2 (diabetes mellitus, type 2) E11.9 Tobacco abuse Z72.0 Arrhythmia I49.9 Hyperlipidemia E78.5 HTN (hypertension) I10 Additional Codes JADEN-7 Assessment Billing - JADEN-7 Assessment Tool: JADEN-7 Assessment 27096 ([id number])
== END 2023-12-03 12:49 | disposition home or self-care (01) ==
PROVIDERS: PCP Internal Medicine; Visit Provider Internal Medicine
DX: Z00.00 Encounter for general adult medical examination without abnormal findings (principal); E11.69 Type 2 diabetes mellitus with other specified complication; M25.561 Pain in right knee; Z72.0 Tobacco use; I49.9 Cardiac arrhythmia, unspecified; E78.5 Hyperlipidemia, unspecified; I10 Essential (primary) hypertension
CPT/HCPCS: 99397

== ENCOUNTER 2023-12-03 14:21 | Outpatient (REF) | payer MEDICARE, SELFPAY ==
--- NOTE | ~2023-12-03 | XR_ITS ---
EXAMINATION: XR KNEE, RIGHT CLINICAL INFORMATION: Pain. COMPARISON: None available. TECHNIQUE: Two views of the right knee. FINDINGS: No significant joint effusion. Diffuse demineralization. Vascular calcifications. Gbgisimc-ge-ywwcic narrowing of the medial compartment. Tiny tricompartmental osteophytes. XR/XR knee RT 2V IMPRESSION: Gtqtgixj-td-mtwnfn degenerative changes.
== END 2023-12-03 14:22 | disposition home or self-care (01) ==
LOC: HO.HMGCX 14:21
PROVIDERS: PCP Internal Medicine; Visit Provider Internal Medicine
DX: M25.561 Pain in right knee (principal)
CPT/HCPCS: 73560

== ENCOUNTER 2024-01-01 11:52 | Outpatient (AMB) | payer MEDICARE, SELFPAY ==
[2024-01-01 12:05] VITALS: BP 120/78; PULSE 68; O2SAT 97; BMI 28.9
--- NOTE | 2024-01-01 12:05 | A.OFFPC_ITS ---
Vital Signs 01/01/24 12:05 Height 5 ft 6 in Weight 179 lb BMI 28.9 BP 120/78 Blood Pressure Location Lt brachial Position Sitting Pulse 68 Pulse Source Pulse Oximeter Pulse Oximetry (%) 97 Oxygen Delivery Method Room Air Intake Visit Reasons: swelling asking for antibiotic Intake Note: Pt is here today for a sick visit. Pt c/o tooth pain and swelling since last night. Pt states that he doesn't have a dentist and he needs to find one to have his tooth pulled out. Allergies No Known Allergies Allergy (Verified 01/01/24 12:08) Medication List - Last Reconciled 01/01/24 by Radha Culp MD amlodipine 10 mg PO DAILY amoxicillin 875 mg PO BID atorvastatin 80 mg PO BEDTIME bisacodyl (Dulcolax (bisacodyl)) 10 mg (2 x 5 mg) PO ONCE 1 day ciclopirox 8% 1 appl topical BEDTIME 4 weeks metformin ER 750 mg PO DAILY nicotine (Nicotrol) 1 inh inhalation Q2-4H PRN omeprazole 20 mg PO DAILY polyethylene glycol 3350 (Miralax) 238 grams PO ONCE Tobacco use date assessed: 12/03/23 Dental Screening Dental Screen Date: 12/03/23 HPI swelling asking for antibiotic HPI Details Patient presents complaining of right upper tooth ache swelling and abscess. Patient is awaiting appointment with a dentist. He denies fever or chills, hypertension hyperlipidemia are stable on current medications. [facility] Medical History (Updated 01/01/24 @ 13:25 by Radha Culp MD) Annual physical exam DM2 (diabetes mellitus, type 2) FHx: abdominal aortic aneurysm Arrhythmia RBBB Tobacco abuse Panic attack Hyperlipidemia HTN (hypertension) Surgical History Hx of colonoscopy H/O inguinal hernia repair Family History Father Stroke Mother No problems noted. Social History Household Members Other:: , Housing: House Alcohol intake: current Alcohol intake frequency: holidays/special occasions only Patient Tobacco Use Status: Current everyday Tobacco user Tobacco use type: Cigarette Cigarettes Per Day: 7 Years Smoked: 50 Packs per year/per ci.50 e-Cigarette/Vaping Use: Never Used service: No Current occupational status: retired Current occupational exposures/hazards: No Cognitive needs: No Hearing needs: No Vision needs: Yes Questionnaire Thrive Questionnaire Date Thrive assessed: 12/03/23 JADEN-7 AMB Questionnaire JADEN-7 Date JADEN - 7 assessed: 12/03/23 Source: Developed by Drs. Dani Giordano, Effie Masterson, Tio Mclean and colleagues, with an educational nika from [employer]. Review of Systems Const All systems reviewed & are unremarkable except as noted in HPI and below Card Reports no additional complaints Resp Reports no additional complaints GI Reports no additional complaints Reports no additional complaints Physical exam (Primary Care) Vital Signs: Last Vital Signs Pulse 68 01/01/24 12:05 BP 140/78 H 01/01/24 12:05 Pulse Ox 97 01/01/24 12:05 Oxygen Delivery Method Room Air 01/01/24 12:05 BMI result Body Mass Index 28.9 Tobacco/Smoking Status: Tobacco use Status Tobacco use date assessed 12/03/23 01/01/24 12:11 Patient Tobacco Use Status Current everyday Tobacco 01/01/24 12:11 Tobacco use type Cigarette 01/01/24 12:11 e-Cigarette/Vaping Use Never Used 01/01/24 12:11 Thrive Assessment: Date of Thrive Assessment Date Thrive assessed 12/03/23 01/01/24 12:11 Const General: no acute distress HENMT Other: Soft tissue swelling of her right cheek, there is an exposed root on the 1st right upper premolar Mouth: Normal oral and palatal mucosa present Eyes General: appearance normal, both eyes and all related structures Resp Effort & Inspection: normal respiratory effort Auscultation: clear to auscultation bilaterally Cardio Rhythm: regular rhythm Heart sounds: S1 normal heart sound present and S2 normal heart sound present Assessment and Plan Assessment & Plan (1) Tooth abscess: Code(s): K04.7 - Periapical abscess without sinus Plan: Amoxicillin 875 mg twice a day is prescribed for 10 days. Patient will follow- up with a dentist (2) HTN (hypertension): Comment: White coat syndrome Code(s): I10 - Essential (primary) hypertension Plan: Continue current medications Medications: New amoxicillin 875 mg PO BID 20 tabs 0RF Coding Level of Care Code Est Pt Level 3 (79540) Diagnoses Tooth abscess K04.7 HTN (hypertension) I10
== END 2024-01-01 12:33 | disposition home or self-care (01) ==
LOC: HO.HMGC 11:52
PROVIDERS: PCP Internal Medicine; Visit Provider Internal Medicine
DX: K04.7 Periapical abscess without sinus (principal); I10 Essential (primary) hypertension
CPT/HCPCS: 99213

== ENCOUNTER 2024-01-12 08:11 | Outpatient (REF) | payer MEDICARE, SELFPAY ==
[2024-01-12 08:33] LABS: MANUAL DIFF FLAG NO
[2024-01-12 09:03] LABS: Basophils Percent Auto 0.2 % (0-2); Eosinophils Absolute Auto 0.2 X10*3/uL (0.0-0.4); Eosinophils Percent Auto 1.8 % (0-4); Hematocrit 43.6 % (42.0-52.0); Hemoglobin 14.6 g/dl (14.0-18.0); Imm Gran Abs Auto 0.05 X10*3/uL (0.00-0.03); Imm Gran Pct Auto 0.6 % (0.0-0.4); Lymphocytes Absolute Auto 3.1 X10*3/uL (1.2-4.9); Lymphocytes Percent Auto 35.9 % (20-40); Mean Corpuscular HGB Conc 33.5 g/dl (31.0-36.0); Mean Corpuscular Hemoglobin 28.7 pg (27.0-33.0); Mean Corpuscular Volume 85.8 fL (80.0-98.0); Mean Platelet Volume 10.8 fL (9.4-12.4); Monocytes Absolute Auto 0.7 X10*3/uL (0.1-1.2); Monocytes Percent Auto 8.7 % (2-11); Neutrophils Absolute Auto 4.5 x10*3/uL (2.0-8.3); Neutrophils Percent Auto 52.8 % (45-73); Platelet Count 205 X10*3/uL (160-400); Red Blood Count 5.08 X10*6/uL (4.60-5.80); Red Cell Distribution Width 13.8 % (11.0-16.0); White Blood Count 8.6 X10*3/uL (4.8-10.8)
[2024-01-12 09:21] LABS: Alanine Aminotransferase 27 U/L (0-40); Alkaline Phosphatase 138 U/L (39-117); Anion Gap 12 (12-20); Aspartate Amino Transferase 17 U/L (5-37); Bilirubin Total 0.6 mg/dL (0.0-1.0); Blood Urea Nitrogen 15 mg/dL (9-16); Calcium 9.9 mg/dL (8.4-10.2); Carbon Dioxide 26 mmol/L (22-29); Chloride 109 mmol/L (96-108); Cholesterol 140 mg/dL (<200); Estimated Glomerular Filt Rate > 60; Glucose Fasting 136 mg/dL (60-99); HDL Cholesterol 38 mg/dL (>40); Iron 87 mcg/dL (45-160); LDL Cholesterol Calculated 76 mg/dL (<100); Percent Iron Saturation 41 % (15-50); Sodium 143 mmol/L (135-145); Total Iron Binding Capacity 211 mcg/dL (228-428); Total Protein 7.1 g/dL (6.5-8.0); Triglycerides 132 mg/dL (<150); Unsaturated Iron Binding 124 ug/dL
[2024-01-12 10:08] LABS: PSA,Total (Free>4and<10) 4.66 ng/mL (0.00-4.00)
[2024-01-12 10:34] LABS: Creatinine Urine 202.15 mg/dL; Microalbum/Creatinine Ratio Ur 3.4 ug/mg cr (<30)
[2024-01-16 10:49] LABS: Free Prostate Spec Ag 1.4 ng/mL; Percent Free Prostate Spec Ag 30 % (calc) (>25); Prostate Specific Ag Total 4.6 ng/mL (< OR = 4.0)
== END 2024-01-12 08:12 | disposition home or self-care (01) ==
LOC: HO.LAB 08:11
PROVIDERS: PCP Internal Medicine; Visit Provider Internal Medicine
DX: Z00.00 Encounter for general adult medical examination without abnormal findings (principal); I10 Essential (primary) hypertension; E78.5 Hyperlipidemia, unspecified; I49.9 Cardiac arrhythmia, unspecified; E11.9 Type 2 diabetes mellitus without complications; Z12.5 Encounter for screening for malignant neoplasm of prostate
CPT/HCPCS: 36415; 80053; 80061; 82043; 82570; 83540; 84153; 84154; 85025

== ENCOUNTER 2024-01-16 09:00 | Outpatient (RCR) | payer MEDICARE, SELFPAY ==
--- NOTE | 2023-12-21 10:49 | MHC.PT.EP ---
[facility] [place] Office [place] Office [place] Office [address] [phone] F: [phone] F: [phone] F: [phone] F: [phone] Physical Therapy Plan of Care Date of Evaluation: 12/21/23 Date of Surgery: Diagnosis: R knee pain Assessment: 73 y/o male referred to PT with R knee pain. S/s consistent with OA resulting in pain and difficulty with stairs, walking, squatting, lifting, chores and worse with weather. Examination shows limited knee extension, hypomobile patella, decreased HS/quad/gastroc length, decreased hip and knee strength, pain, and impaired gait pattern. Recommend PT2x/week for 5 weeks to address impairments, implement HEP, and optimize functional mobility. Frequency and Duration: The patient will be seen 2x/week for 5 weeks Short Term Goals: 3 weeks I with HEP Demonstrate 0* knee extension Assisted Goals: 5 weeks I with HEP and self management of sx Pt will be able to ambulate with symmetrical gait pattern and pain < 3/10 > 15 minutes Pt will be able to ascend/ descend stairs in step throughout pattern and pain < 3/10 Treatment Plan: Modalities to reduce pain, spasms and effusion. Manual therapy to restore motion and function. Therapeutic exercise to improve strength and flexibility. Neuromuscular re-education for posture and balance. Therapeutic activities to return to functional activities of daily living. Electronically signed by: Alecia Larios PT Please sign and return to therapist. Thank you for your referral.
--- NOTE | 2024-01-16 10:41 | MHC.PT.DC ---
[facility] [place] Office [place] [facility] [place] Office [address] Alvin Sherwood [address] [phone] F: [phone] F: [phone] F: [phone] F: [phone] Physical Therapy Discharge Report Diagnosis: R knee pain Date of Surgery: Date of Evaluation: 12/21/23 Date of Discharge: 01/16/24 Treatments to Date: 9 Cancellations to Date: 0 No Shows to Date: 0 Discharge Status: Independent with HEP Discharge Summary: 01/16/24: I reviewed HEP with patient and issued compression sleeve which he noted was very helpful. I instructed him on continued management of knee. He is I with HEP. and met AROM goals. He ambulates symmetrically without pain. He still does have TTP but otherwise s/s are to lesser degree (3/10 max during ADLs). He is happy with his progress and is confident in his ability to continue with HEP independently. We will d/c to HEP at this time. COntinues with reduced impulsivity today. No increase in pain and able to ascend/ descend stairs reciprocally. Knee ROM is 0-135. Updated HEP and anticipate d/c next visit. Electronically signed by: Anirudh Mann PT Please sign and return to therapist. Thank you for your referral.
== END 2024-01-16 10:42 | disposition home or self-care (01) ==
LOC: HO.PTCHIC 09:00
PROVIDERS: PCP Internal Medicine; Visit Provider Internal Medicine
DX: M25.561 Pain in right knee (principal)
CPT/HCPCS: 97110; 97162

== ENCOUNTER 2024-06-12 11:05 | Outpatient (AMB) | payer MEDICARE, SELFPAY ==
[2024-06-12 11:38] VITALS: BP 110/70; PULSE 72; O2SAT 98; BMI 28.9
--- NOTE | 2024-06-12 11:38 | MHC.PC.OV ---
Vital Signs 06/12/24 11:38 Height 5 ft 6 in Weight 179 lb BMI 28.9 BP 110/70 Blood Pressure Location Rt brachial Position Sitting Pulse 72 Pulse Source Pulse Oximeter Pulse Oximetry (%) 98 Oxygen Delivery Method Room Air Intake Visit Reasons: 6 months follow up Intake Note: Pt is here today for 6 months follow up visit on labs. Pt states that he has been having pain in his lower L leg that goes up to his knee. Allergies No Known Allergies Allergy (Verified 06/12/24 11:39) Medication List - Last Reconciled 06/12/24 by Radha Culp MD amlodipine 10 mg PO DAILY atorvastatin 80 mg PO BEDTIME bisacodyl (Dulcolax (bisacodyl)) 10 mg (2 x 5 mg) PO ONCE 1 day ciclopirox 8% 1 appl topical BEDTIME 4 weeks metformin ER 1,500 mg (2 x 750 mg) PO DAILY nicotine (Nicotrol) 1 inh inhalation Q2-4H PRN omeprazole 20 mg PO DAILY polyethylene glycol 3350 (Miralax) 238 grams PO ONCE Tobacco use date assessed: 06/12/24 Fall risk assessment: No Falls in past year Last assessed Fall Risk: 06/12/24 Dental Screening Dental Screen Date: 06/12/24 Did you have a dental visit in the last 12 months?: Yes Did you have a dental problem in the last 6 months where you did not have access to dental care?: No Was dental information given to patient?: Patient has dentist HPI 6 months follow up HPI Details Pt presents for f/u HTN, DM 2, hyperlipid, stable on meds. [facility] Medical History Annual physical exam DM2 (diabetes mellitus, type 2) FHx: abdominal aortic aneurysm Arrhythmia RBBB Tobacco abuse Panic attack Hyperlipidemia HTN (hypertension) Surgical History Hx of colonoscopy H/O inguinal hernia repair Family History Father Stroke Mother No problems noted. Social History Household Members Other:: , Housing: House Alcohol intake: current Alcohol intake frequency: holidays/special occasions only Patient Tobacco Use Status: Current everyday Tobacco user Tobacco use type: Cigarette Cigarettes Per Day: 7 Years Smoked: 50 e-Cigarette/Vaping Use: Never Used service: No Current occupational status: retired Current occupational exposures/hazards: No Cognitive needs: No Hearing needs: No Vision needs: Yes Questionnaire PHQ-9 Over the last 2 weeks, how often have you been bothered by any of the following problems? 1. Little interest or pleasure in doing things: not at all 2. Feeling down, depressed, or hopeless: not at all 3. Trouble falling or staying asleep, or sleeping too much: not at all 4. Feeling tired or having little energy: not at all 5. Poor appetite or overeating: not at all 6. Feeling bad about yourself - or that you are a failure or have let yourself or your family down: not at all 7. Trouble concentrating on things, such as reading the newspaper or watching television: not at all 8. Moving or speaking so slowly that other people could have noticed. Or the opposite - being so fidgety or restless that you have been moving around a lot more than usual: not at all 9. Thoughts that you would be better off or of hurting yourself in some way: not at all Total score: 0 Depression Screening Interpretation: Negative Depression Screening Done: Yes 87348 - PHQ-9 Billing: Yes Source: Developed by Drs. Dani Giordano, Effie Masterson, Tio Mclean and colleagues, with an educational nika from [employer]. Thrive Questionnaire Date Thrive assessed: 06/12/24 I am a: Patient What is your living situation today?: I choose not to answer this question Within the past 12 months, did the food you bought not last and you didn't have the money to get more?: I choose not to answer this question Within the past 12 months, did you worry whether your food would run out before you got money to buy more?: I choose not to answer this question Do you have trouble paying for medicines?: I choose not to answer this question Do you have trouble getting transportation to medical appointments?: I choose not to answer this question Do you have trouble paying your heating and electricity bill?: I choose not to answer this question Do you have trouble taking care of your child, family member or friend?: I choose not to answer this question Do you have trouble with day-to-day activities such as bathing, preparing meals, shopping, managing finances, etc.?: I choose not to answer this question Are you currently unemployed and looking for a job?: I choose not to answer this question Are you interested in more education?: I choose not to answer this question THRIVE Score: 0 AUDIT C Alcohol Use Questionnaire (AUDIT-C) 1. How often do you have a drink containing alcohol?: Never 3. How often do you have six or more drinks on one occasion?: Never Total Score: 0 JADEN-7 AMB Questionnaire JADEN-7 Date JADEN - 7 assessed: 06/12/24 Feeling nervous, anxious, or on edge: 0 = Not at all Not being able to stop or control worryin = Not at all Worrying too much about different things: 0 = Not at all Trouble relaxin = Not at all Being so restless that it is hard to sit still: 0 = Not at all Becoming easily annoyed or irritable: 0 = Not at all Feeling afraid as if something awful might happen: 0 = Not at all Total JADEN-7 score (0-4 normal; 5-9 mild; 10-14 moderate; 15-21 severe): 0 Source: Developed by Drs. Dani Giordano, Effie Masterson, Tio Mclean and colleagues, with an educational nika from [employer]. JADEN-7 Assessment Billing JADEN-7 Assessment Tool: JADEN-7 Assessment 99373 Review of Systems Const All systems reviewed & are unremarkable except as noted in HPI and below ENT Reports no additional complaints Card Reports no additional complaints Resp Reports no additional complaints GI Reports no additional complaints Reports no additional complaints Physical exam (Primary Care) Vital Signs: Last Vital Signs Pulse 72 06/12/24 11:38 BP 110/70 06/12/24 11:38 Pulse Ox 98 06/12/24 11:38 Oxygen Delivery Method Room Air 06/12/24 11:38 BMI result Body Mass Index 28.9 Tobacco/Smoking Status: Tobacco use Status Tobacco use date assessed 06/12/24 06/12/24 11:47 Patient Tobacco Use Status Current everyday Tobacco 06/12/24 11:39 Tobacco use type Cigarette 06/12/24 11:39 e-Cigarette/Vaping Use Never Used 06/12/24 11:39 PHQ-9: PHQ-9 Score PHQ-9: Total score 0 06/12/24 11:47 Depression Screening Interpretation: Negative Thrive Assessment: Date of Thrive Assessment Date Thrive assessed 06/12/24 06/12/24 11:39 Const General: no acute distress HENMT Mouth: Normal oral and palatal mucosa present Eyes General: appearance normal, both eyes and all related structures Neck Neck: Yes supple Resp Effort & Inspection: normal respiratory effort Auscultation: clear to auscultation bilaterally Cardio Rhythm: regular rhythm Heart sounds: S1 normal heart sound present and S2 normal heart sound present GI Inspection: Yes normal to inspection Coding Level of Care Code Est Pt Level 4 (41483) Diagnoses HTN (hypertension) I10 Hyperlipidemia E78.5 DM2 (diabetes mellitus, type 2) E11.9 Additional Codes JADEN-7 Assessment Billing - JADEN-7 Assessment Tool: JADEN-7 Assessment 55821 ([id number]) PHQ-9 - 26593 - PHQ-9 Billing: Yes ([id number]) Assessment & Plan Assessment & Plan (1) HTN (hypertension): Comment: White coat syndrome Code(s): I10 - Essential (primary) hypertension Category: Medical Plan: Continue amlodipine (2) Hyperlipidemia: Code(s): E78.5 - Hyperlipidemia, unspecified Category: Medical Plan: Continue statin (3) DM2 (diabetes mellitus, type 2): Code(s): E11.9 - Type 2 diabetes mellitus without complications Category: Medical Plan: A1c is 7.7, ADA diet increase physical activity discussed with the patient increase metformin to 1500 mg and follow-up in 3 months with a fasting labs before Orders: Orders Hemoglobin A1c 3 Months E11.9 - Type 2 diabetes mellitus without complications, E78.5 - Hyperlipidemia, unspecified, I10 - Essential (primary) hypertension Comprehensive [place]. Panel Fast 3 Months E11.9 - Type 2 diabetes mellitus without complications, E78.5 - Hyperlipidemia, unspecified, I10 - Essential (primary) hypertension Complete Blood Count Auto Diff 3 Months E11.9 - Type 2 diabetes mellitus without complications, E78.5 - Hyperlipidemia, unspecified, I10 - Essential (primary) hypertension Medications: Changed From metformin ER 750 mg PO DAILY 90 tabs 3RF To metformin ER 1,500 mg (2 x 750 mg) PO DAILY 180 tabs 3RF
== END 2024-06-12 12:46 | disposition home or self-care (01) ==
PROVIDERS: PCP Internal Medicine; Visit Provider Internal Medicine
DX: I10 Essential (primary) hypertension (principal); E78.5 Hyperlipidemia, unspecified; E11.9 Type 2 diabetes mellitus without complications

== ENCOUNTER → 2024-06-12 11:05 | Outpatient (BNVA) | payer MEDICARE, SELFPAY | PROVIDERS: PCP Internal Medicine; Visit Provider Internal Medicine | DX: I10 Essential (primary) hypertension (principal); E78.5 Hyperlipidemia, unspecified; E11.9 Type 2 diabetes mellitus without complications | CPT/HCPCS: 96127; 99212 ==

== ENCOUNTER 2024-09-02 08:04 | Outpatient (REF) | payer MEDICARE, SELFPAY ==
[2024-09-02 08:19] LABS: MANUAL DIFF FLAG NO
[2024-09-02 08:30] LABS: Basophils Percent Auto 0.3 % (0-2); Eosinophils Absolute Auto 0.1 X10*3/uL (0.0-0.4); Eosinophils Percent Auto 1.8 % (0-4); Hematocrit 42.8 % (42.0-52.0); Hemoglobin 14.5 g/dl (14.0-18.0); Imm Gran Abs Auto 0.02 X10*3/uL (0.00-0.03); Imm Gran Pct Auto 0.3 % (0.0-0.4); Lymphocytes Absolute Auto 2.6 X10*3/uL (1.2-4.9); Lymphocytes Percent Auto 33.6 % (20-40); Mean Corpuscular HGB Conc 33.9 g/dl (31.0-36.0); Mean Corpuscular Hemoglobin 29.3 pg (27.0-33.0); Mean Corpuscular Volume 86.5 fL (80.0-98.0); Mean Platelet Volume 11.5 fL (9.4-12.4); Monocytes Absolute Auto 0.7 X10*3/uL (0.1-1.2); Monocytes Percent Auto 9.1 % (2-11); Neutrophils Absolute Auto 4.3 x10*3/uL (2.0-8.3); Neutrophils Percent Auto 54.9 % (45-73); Platelet Count 186 X10*3/uL (160-400); Red Blood Count 4.95 X10*6/uL (4.60-5.80); Red Cell Distribution Width 14.6 % (11.0-16.0); White Blood Count 7.8 X10*3/uL (4.8-10.8)
[2024-09-02 08:44] LABS: Estimated Average Glucose 148 mg/dL; Hemoglobin A1C 186.5879 umol/L; Hemoglobin A1c % 6.8 % (<6.0); Total Hemoglobin (HGBA1C) 3661.4213 umol/L
[2024-09-02 08:58] LABS: Alanine Aminotransferase 52 U/L (0-40); Albumin Level 3.9 g/dL (3.5-5.0); Alkaline Phosphatase 109 U/L (39-117); Anion Gap 9 (12-20); Aspartate Amino Transferase 29 U/L (5-37); Bilirubin Total 0.5 mg/dL (0.0-1.0); Blood Urea Nitrogen 15 mg/dL (9-16); Calcium 9.2 mg/dL (8.4-10.2); Carbon Dioxide 26 mmol/L (22-29); Chloride 110 mmol/L (96-108); Estimated Glomerular Filt Rate > 60; Glucose Fasting 134 mg/dL (60-99); Potassium 4.3 mmol/L (3.3-5.1); Sodium 141 mmol/L (135-145); Total Protein 6.8 g/dL (6.5-8.0)
== END 2024-09-02 08:05 | disposition home or self-care (01) ==
LOC: HO.LAB 08:04
PROVIDERS: PCP Internal Medicine; Visit Provider Internal Medicine
DX: E11.9 Type 2 diabetes mellitus without complications (principal); E78.5 Hyperlipidemia, unspecified; I10 Essential (primary) hypertension
CPT/HCPCS: 36415; 80053; 83036; 85025

== ENCOUNTER 2024-09-12 10:33 | Outpatient (AMB) | payer MEDICARE, SELFPAY ==
[2024-09-12 10:55] VITALS: BP 128/78; PULSE 78; RESP 18; TEMP 36.3; O2SAT 97; BMI 27.4
--- NOTE | 2024-09-12 10:55 | A.OFFPC_ITS ---
Vital Signs 09/12/24 10:55 Height 5 ft 6 in Weight 170 lb BMI 27.4 BP 128/78 Blood Pressure Location Lt brachial Position Sitting Respiration 18 Pulse 78 Pulse Source Pulse Oximeter Temp 97.4 F Temp Source Oral Pulse Oximetry (%) 97 Oxygen Delivery Method Room Air Intake Visit Reasons: 3m follow up Intake Note: Pt is here today for 3 months follow up visit. Allergies No Known Allergies Allergy (Verified 09/12/24 10:55) Medication List - Last Reconciled 09/12/24 by Radha Culp MD amlodipine 10 mg PO DAILY atorvastatin 80 mg PO BEDTIME bisacodyl (Dulcolax (bisacodyl)) 10 mg (2 x 5 mg) PO ONCE 1 day ciclopirox 8% 1 appl topical BEDTIME 4 weeks metformin ER 1,500 mg (2 x 750 mg) PO DAILY nicotine (Nicotrol) 1 inh inhalation Q2-4H PRN omeprazole 20 mg PO DAILY polyethylene glycol 3350 (Miralax) 238 grams PO ONCE Tobacco use date assessed: 09/12/24 Fall risk assessment: No Falls in past year Last assessed Fall Risk: 09/12/24 Dental Screening Dental Screen Date: 06/12/24 HPI 3m follow up HPI Details Pt presents for f/u HTN, hyperlipid, DM 2, stable on meds. [facility] Medical History Annual physical exam DM2 (diabetes mellitus, type 2) FHx: abdominal aortic aneurysm Arrhythmia RBBB Tobacco abuse Panic attack Hyperlipidemia HTN (hypertension) Surgical History Hx of colonoscopy H/O inguinal hernia repair Family History Father Stroke Mother No problems noted. Social History Household Members Other:: , Housing: House Alcohol intake: current Alcohol intake frequency: holidays/special occasions only Patient Tobacco Use Status: Current everyday Tobacco user Tobacco use type: Cigarette Cigarettes Per Day: 7 Years Smoked: 50 e-Cigarette/Vaping Use: Never Used service: No Current occupational status: retired Current occupational exposures/hazards: No Cognitive needs: No Hearing needs: No Vision needs: Yes Questionnaire Thrive Questionnaire Date Thrive assessed: 06/12/24 AUDIT C Alcohol Use Questionnaire (AUDIT-C) 1. How often do you have a drink containing alcohol?: Never 3. How often do you have six or more drinks on one occasion?: Never Total Score: 0 JADEN-7 AMB Questionnaire JADEN-7 Date JADEN - 7 assessed: 06/12/24 Source: Developed by Drs. Dani Giordano, Effie Masterson, Tio Mclean and colleagues, with an educational nika from [employer]. Review of Systems Const All systems reviewed & are unremarkable except as noted in HPI and below Eyes Reports no additional complaints ENT Reports no additional complaints Card Reports no additional complaints Resp Reports no additional complaints GI Reports no additional complaints Reports no additional complaints Physical exam (Primary Care) Vital Signs: Last Vital Signs Temp 97.4 F 09/12/24 10:55 Pulse 78 09/12/24 10:55 Resp 18 09/12/24 10:55 BP 128/78 09/12/24 10:55 Pulse Ox 97 09/12/24 10:55 Oxygen Delivery Method Room Air 09/12/24 10:55 BMI result Body Mass Index 27.4 Tobacco/Smoking Status: Tobacco use Status Tobacco use date assessed 09/12/24 09/12/24 10:56 Patient Tobacco Use Status Current everyday Tobacco 09/12/24 10:56 Tobacco use type Cigarette 09/12/24 10:56 e-Cigarette/Vaping Use Never Used 09/12/24 10:56 Thrive Assessment: Date of Thrive Assessment Date Thrive assessed 06/12/24 09/12/24 10:56 Const General: no acute distress HENMT Head: Yes normal to inspection Ears: hearing grossly normal bilaterally Face and sinus: Yes normal facial exam Mouth: Normal oral and palatal mucosa present Throat: Yes posterior oropharynx normal Eyes General: appearance normal, both eyes and all related structures Neck Neck: Yes no lymphadenopathy and Yes supple Resp Effort & Inspection: normal respiratory effort Auscultation: clear to auscultation bilaterally Cardio Rhythm: regular rhythm Heart sounds: S1 normal heart sound present and S2 normal heart sound present Coding Level of Care Code Est Pt Level 4 (74860) Diagnoses DM2 (diabetes mellitus, type 2) E11.9 Hyperlipidemia E78.5 HTN (hypertension) I10 Assessment & Plan Assessment & Plan (1) DM2 (diabetes mellitus, type 2): Comment: Patient refused Pneumovax Code(s): E11.9 - Type 2 diabetes mellitus without complications Category: Medical Plan: A1c is 6.8. Continue ADA diet regular physical activity metformin follow-up in 3 months with a fasting labs before. (2) Hyperlipidemia: Code(s): E78.5 - Hyperlipidemia, unspecified Category: Medical Plan: Continue atorvastatin (3) HTN (hypertension): Comment: White coat syndrome Code(s): I10 - Essential (primary) hypertension Category: Medical Plan: Continue Amlodipine Orders: Orders Complete Blood Count Auto Diff 3 Months E11.9 - Type 2 diabetes mellitus without complications, E78.5 - Hyperlipidemia, unspecified PSA,Total (Free>4and<10) 3 Months E11.9 - Type 2 diabetes mellitus without complications, E78.5 - Hyperlipidemia, unspecified UA w Microscopic 3 Months E11.9 - Type 2 diabetes mellitus without complications, E78.5 - Hyperlipidemia, unspecified Microalbumin, Random (w Creat) 3 Months E11.9 - Type 2 diabetes mellitus without complications, E78.5 - Hyperlipidemia, unspecified Comprehensive [place]. Panel Fast 3 Months E11.9 - Type 2 diabetes mellitus without complications, E78.5 - Hyperlipidemia, unspecified Lipid Panel 3 Months E11.9 - Type 2 diabetes mellitus without complications, E78.5 - Hyperlipidemia, unspecified Hemoglobin A1c 3 Months E11.9 - Type 2 diabetes mellitus without complications, E78.5 - Hyperlipidemia, unspecified Referrals Nutrition/Dietitian Referral E11.9 - Type 2 diabetes mellitus without complications, E78.5 - Hyperlipidemia, unspecified Medications: Refilled amlodipine 10 mg PO DAILY 90 tabs 3RF atorvastatin 80 mg PO BEDTIME 90 tabs 3RF
== END 2024-09-12 11:41 | disposition home or self-care (01) ==
LOC: HO.HMCC 10:34
PROVIDERS: PCP Internal Medicine; Visit Provider Internal Medicine
DX: E11.9 Type 2 diabetes mellitus without complications (principal); E78.5 Hyperlipidemia, unspecified; I10 Essential (primary) hypertension

== ENCOUNTER → 2024-09-12 10:33 | Outpatient (BNVA) | payer MEDICARE, SELFPAY | PROVIDERS: PCP Internal Medicine; Visit Provider Internal Medicine | DX: E11.9 Type 2 diabetes mellitus without complications (principal); E78.5 Hyperlipidemia, unspecified; I10 Essential (primary) hypertension; Z79.899 Other long term (current) drug therapy | CPT/HCPCS: 99212 ==

== ENCOUNTER 2024-11-19 14:03 | Outpatient (AMB) | payer MEDICARE, SELFPAY ==
[2024-11-19 14:44] VITALS: BP 126/80; PULSE 75; RESP 18; TEMP 36.4; O2SAT 97; BMI 27.4
--- NOTE | 2024-11-19 14:44 | MHC.PC.OV ---
Vital Signs 11/19/24 14:44 Height 5 ft 6 in Weight 170 lb BMI 27.4 BP 126/80 Blood Pressure Location Lt brachial Position Sitting Respiration 18 Pulse 75 Pulse Source Pulse Oximeter Temp 97.6 F Temp Source Oral Pulse Oximetry (%) 97 Oxygen Delivery Method Room Air Intake Visit Reasons: insect bite, rash Intake Note: Pt is here today for a sick visit. Pt c/o rash on his face and swelling and rash on his inner part of his R arm. Allergies atorvastatin Adverse Reaction (Verified 11/19/24 15:23) Constipation Medication List - Last Reconciled 11/19/24 by Radha Culp MD amlodipine 10 mg PO DAILY atorvastatin 80 mg PO BEDTIME bisacodyl (Dulcolax (bisacodyl)) 10 mg (2 x 5 mg) PO ONCE 1 day ciclopirox 8% 1 appl topical BEDTIME 4 weeks metformin ER 1,500 mg (2 x 750 mg) PO DAILY nicotine (Nicotrol) 1 inh inhalation Q2-4H PRN omeprazole 20 mg PO DAILY polyethylene glycol 3350 (Miralax) 238 grams PO ONCE Tobacco use date assessed: 11/19/24 Fall risk assessment: No Falls in past year Last assessed Fall Risk: 11/19/24 Dental Screening Dental Screen Date: 11/19/24 Did you have a dental visit in the last 12 months?: No Did you have a dental problem in the last 6 months where you did not have access to dental care?: No Was dental information given to patient?: Patient declined HPI insect bite, rash HPI Details Patient presents complaining of a rash in the right cubital fossa for 3 days. Patient has been applying [id number] antibacterial ointment and rash became itchy and erythematous. Patient woke up with swelling around his eyes this morning. He denies difficulty swallowing or breathing fever chills PFSH Medical History Annual physical exam DM2 (diabetes mellitus, type 2) FHx: abdominal aortic aneurysm Arrhythmia RBBB Tobacco abuse Panic attack Hyperlipidemia HTN (hypertension) Surgical History Hx of colonoscopy H/O inguinal hernia repair Family History Father Stroke Mother No problems noted. Social History Household Members Other:: , Housing: House Alcohol intake: current Alcohol intake frequency: holidays/special occasions only Patient Tobacco Use Status: Current everyday Tobacco user Tobacco use type: Cigarette Cigarettes Per Day: 7 Years Smoked: 50 e-Cigarette/Vaping Use: Never Used service: No Current occupational status: retired Current occupational exposures/hazards: No Cognitive needs: No Hearing needs: No Vision needs: Yes Questionnaire Thrive Questionnaire Date Thrive assessed: 06/12/24 AUDIT C Alcohol Use Questionnaire (AUDIT-C) 1. How often do you have a drink containing alcohol?: Never 3. How often do you have six or more drinks on one occasion?: Never Total Score: 0 JADEN-7 AMB Questionnaire JADEN-7 Date JADEN - 7 assessed: 06/12/24 Source: Developed by Drs. Dani Giordano, Effie Masterson, Tio Mclean and colleagues, with an educational nika from [employer]. Review of Systems Const All systems reviewed & are unremarkable except as noted in HPI and below Eyes Reports no additional complaints ENT Reports no additional complaints Card Reports no additional complaints Resp Reports no additional complaints GI Reports no additional complaints Reports no additional complaints Physical exam (Primary Care) Vital Signs: Last Vital Signs Temp 97.6 F 11/19/24 14:44 Pulse 75 11/19/24 14:44 Resp 18 11/19/24 14:44 BP 126/80 11/19/24 14:44 Pulse Ox 97 11/19/24 14:44 Oxygen Delivery Method Room Air 11/19/24 14:44 BMI result Body Mass Index 27.4 Tobacco/Smoking Status: Tobacco use Status Tobacco use date assessed 11/19/24 11/19/24 14:55 Patient Tobacco Use Status Current everyday Tobacco 11/19/24 14:51 Tobacco use type Cigarette 11/19/24 14:51 e-Cigarette/Vaping Use Never Used 11/19/24 14:51 Thrive Assessment: Date of Thrive Assessment Date Thrive assessed 06/12/24 11/19/24 14:51 Const General: no acute distress HENMT Other: Periorbital erythematous soft tissue swelling Mouth: Normal oral and palatal mucosa present Throat: Yes posterior oropharynx normal Eyes Conjunctivae: conjunctivae normal Pupils: Equal, round and reactive pupils present Neck Neck: Yes no lymphadenopathy and Yes supple Resp Effort & Inspection: normal respiratory effort Auscultation: clear to auscultation bilaterally Cardio Rhythm: regular rhythm Heart sounds: S1 normal heart sound present and S2 normal heart sound present Skin Other: Erythematous papular rash in right cubital fossa Neuro Cranial nerves: Yes Equal, round and reactive pupils present Coding Level of Care Code Est Pt Level 3 (75697) Diagnoses Allergic reaction T78.40XA Assessment & Plan Assessment & Plan (1) Allergic reaction: Code(s): T78.40XA - Allergy, unspecified, initial encounter Category: Medical Plan: Prednisone 20 mg daily for 3 days is prescribed. Patient was advised not to apply antibacterial ointment on the rash and keep the area dry and clean Medications: New prednisone 20 mg PO DAILY 3 tabs 0RF
== END 2024-11-19 15:38 | disposition home or self-care (01) ==
LOC: HO.HMCC 14:04
PROVIDERS: PCP Internal Medicine; Visit Provider Internal Medicine
DX: T78.40XA Allergy, unspecified, initial encounter (principal)

== ENCOUNTER → 2024-11-19 14:03 | Outpatient (BNVA) | payer MEDICARE, SELFPAY | PROVIDERS: PCP Internal Medicine; Visit Provider Internal Medicine | DX: I10 Essential (primary) hypertension (principal); T78.40XA Allergy, unspecified, initial encounter; R21 Rash and other nonspecific skin eruption; X58.XXXA Exposure to other specified factors, initial encounter | CPT/HCPCS: 99212 ==

== ENCOUNTER 2025-01-09 08:43 | Outpatient (REF) | payer MEDICARE, SELFPAY ==
[2025-01-09 08:55] LABS: MANUAL DIFF FLAG NO
[2025-01-09 09:52] LABS: Hematocrit 43.4 % (42.0-52.0); Hemoglobin 14.6 g/dl (14.0-18.0); Imm Gran Abs Auto 0.02 X10*3/uL (0.00-0.03); Imm Gran Pct Auto 0.2 % (0.0-0.4); Lymphocytes Absolute Auto 2.8 X10*3/uL (1.2-4.9); Mean Corpuscular HGB Conc 33.6 g/dl (31.0-36.0); Mean Corpuscular Hemoglobin 28.6 pg (27.0-33.0); Mean Corpuscular Volume 85.1 fL (80.0-98.0); NRBC Abs Auto 0.000 X10*3/uL (0.0-0.012); NRBC Pct Auto 0.0 /100WBC (0.0-0.2); Platelet Count 200 X10*3/uL (160-400); Red Blood Count 5.10 X10*6/uL (4.60-5.80); White Blood Count 8.3 X10*3/uL (4.8-10.8)
[2025-01-09 10:26] LABS: Alanine Aminotransferase 32 U/L (0-40); Albumin Level 4.2 g/dL (3.5-5.0); Alkaline Phosphatase 110 U/L (39-117); Anion Gap 13 (12-20); Aspartate Amino Transferase 25 U/L (5-37); Blood Urea Nitrogen 14 mg/dL (9-16); Calcium 9.4 mg/dL (8.4-10.2); Carbon Dioxide 23 mmol/L (22-29); Chloride 109 mmol/L (96-108); Cholesterol 259 mg/dL (<200); Estimated Glomerular Filt Rate > 60; HDL Cholesterol 40 mg/dL (>40); Potassium 4.3 mmol/L (3.3-5.1); Sodium 141 mmol/L (135-145); Total Protein 7.1 g/dL (6.5-8.0); Triglycerides 191 mg/dL (<150)
[2025-01-09 10:33] LABS: Hemoglobin A1C 194.1470 umol/L; Total Hemoglobin (HGBA1C) 3933.1263 umol/L
[2025-01-09 10:39] LABS: PSA,Total (Free>4and<10) 3.24 ng/mL (0.00-4.00)
[2025-01-09 10:46] LABS: Appearance Urine Clear; Glucose Urine UA Negative (Negative); PH 5.5 (5.0-9.0); Specific Gravity - Urine 1.020 (1.005-1.025)
[2025-01-09 11:45] LABS: Microalbum/Creatinine Ratio Ur 4.2 ug/mg cr (<30)
== END 2025-01-09 08:44 | disposition home or self-care (01) ==
LOC: HO.LAB 08:43
PROVIDERS: PCP Internal Medicine; Visit Provider Internal Medicine
DX: Z12.5 Encounter for screening for malignant neoplasm of prostate (principal); E78.5 Hyperlipidemia, unspecified; E11.9 Type 2 diabetes mellitus without complications
CPT/HCPCS: 36415; 80053; 80061; 81001; 82043; 82570; 83036; 84153; 85025

== ENCOUNTER 2025-01-14 10:34 | Outpatient (AMB) | payer MEDICARE, SELFPAY ==
--- NOTE | 2025-01-14 10:36 | MHC.PC.OV ---
Vital Signs 01/14/25 10:37 Height 5 ft 6 in Weight 170 lb BMI 27.4 BP 120/76 Blood Pressure Location Lt brachial Position Sitting Respiration 18 Pulse 74 Pulse Source Pulse Oximeter Temp 97.8 F Temp Source Oral Pulse Oximetry (%) 96 Oxygen Delivery Method Room Air Intake Visit Reasons: PE Intake Note: Pt is here today for PE. Allergies atorvastatin Adverse Reaction (Verified 01/14/25 10:37) Constipation Medication List - Last Reconciled 01/14/25 by Radha Culp MD amlodipine 10 mg PO DAILY bisacodyl (Dulcolax (bisacodyl)) 10 mg (2 x 5 mg) PO ONCE 1 day ciclopirox 8% 1 appl topical BEDTIME 4 weeks metformin ER 1,500 mg (2 x 750 mg) PO DAILY nicotine (Nicotrol) 1 inh inhalation Q2-4H PRN omeprazole 20 mg PO DAILY polyethylene glycol 3350 (Miralax) 238 grams PO ONCE rosuvastatin (Crestor) 20 mg PO DAILY Tobacco use date assessed: 01/14/25 Fall risk assessment: No Falls in past year Last assessed Fall Risk: 01/14/25 Dental Screening Dental Screen Date: 11/19/24 HPI PE HPI Details Pt presents for PE. [facility] Medical History (Updated 01/14/25 @ 20:01 by Radha Culp MD) Annual physical exam DM2 (diabetes mellitus, type 2) FHx: abdominal aortic aneurysm Arrhythmia RBBB Tobacco abuse Panic attack Hyperlipidemia HTN (hypertension) Surgical History (Updated 01/14/25 @ 20:01 by Radha Culp MD) Hx of colonoscopy H/O inguinal hernia repair Family History Father Stroke Mother No problems noted. Social History Household Members Other:: , Housing: House Alcohol intake: current Alcohol intake frequency: holidays/special occasions only Patient Tobacco Use Status: Current everyday Tobacco user Tobacco use type: Cigarette Cigarettes Per Day: 7 Years Smoked: 50 e-Cigarette/Vaping Use: Never Used service: No Current occupational status: retired Current occupational exposures/hazards: No Cognitive needs: No Hearing needs: No Vision needs: Yes Questionnaire PHQ-9 Over the last 2 weeks, how often have you been bothered by any of the following problems? 1. Little interest or pleasure in doing things: not at all 2. Feeling down, depressed, or hopeless: not at all 3. Trouble falling or staying asleep, or sleeping too much: not at all 4. Feeling tired or having little energy: not at all 5. Poor appetite or overeating: not at all 6. Feeling bad about yourself - or that you are a failure or have let yourself or your family down: not at all 7. Trouble concentrating on things, such as reading the newspaper or watching television: not at all 8. Moving or speaking so slowly that other people could have noticed. Or the opposite - being so fidgety or restless that you have been moving around a lot more than usual: not at all 9. Thoughts that you would be better off or of hurting yourself in some way: not at all Total score: 0 Depression Screening Interpretation: Negative Depression Screening Done: Yes 27354 - PHQ-9 Billing: Yes Source: Developed by Drs. Dani Giordano, Effie Masterson, Tio Mclean and colleagues, with an educational nika from [employer]. Thrive Questionnaire Date Thrive assessed: 01/14/25 I am a: Patient What is your living situation today?: I have a steady place to live Within the past 12 months, did the food you bought not last and you didn't have the money to get more?: Never true Within the past 12 months, did you worry whether your food would run out before you got money to buy more?: Never true Do you have trouble paying for medicines?: No Do you have trouble getting transportation to medical appointments?: No Do you have trouble paying your heating and electricity bill?: No Do you have trouble taking care of your child, family member or friend?: No Do you have trouble with day-to-day activities such as bathing, preparing meals, shopping, managing finances, etc.?: No Are you currently unemployed and looking for a job?: No Are you interested in more education?: No Please select the resources that you would like help with: None THRIVE Score: 0 AUDIT C Alcohol Use Questionnaire (AUDIT-C) 1. How often do you have a drink containing alcohol?: Never 3. How often do you have six or more drinks on one occasion?: Never Total Score: 0 JADEN-7 AMB Questionnaire JADEN-7 Date JADEN - 7 assessed: 01/14/25 Feeling nervous, anxious, or on edge: 0 = Not at all Not being able to stop or control worryin = Not at all Worrying too much about different things: 0 = Not at all Trouble relaxin = Not at all Being so restless that it is hard to sit still: 0 = Not at all Becoming easily annoyed or irritable: 0 = Not at all Feeling afraid as if something awful might happen: 0 = Not at all Total JADEN-7 score (0-4 normal; 5-9 mild; 10-14 moderate; 15-21 severe): 0 Source: Developed by Drs. Dani Giordano, Effie Masterson, Tio Mclean and colleagues, with an educational nika from [employer]. JADEN-7 Assessment Billing JADEN-7 Assessment Tool: JADEN-7 Assessment 75634 Review of Systems Const All systems reviewed & are unremarkable except as noted in HPI and below Eyes Reports no additional complaints ENT Reports no additional complaints Card Reports no additional complaints Resp Reports no additional complaints GI Reports no additional complaints Reports no additional complaints Physical exam (Primary Care) Vital Signs: Last Vital Signs Temp 97.8 F 01/14/25 10:37 Pulse 74 01/14/25 10:37 Resp 18 01/14/25 10:37 BP 120/76 01/14/25 10:37 Pulse Ox 96 01/14/25 10:37 Oxygen Delivery Method Room Air 01/14/25 10:37 BMI result Body Mass Index 27.4 Tobacco/Smoking Status: Tobacco use Status Tobacco use date assessed 01/14/25 01/14/25 10:41 Patient Tobacco Use Status Current everyday Tobacco 01/14/25 10:41 Tobacco use type Cigarette 01/14/25 10:41 e-Cigarette/Vaping Use Never Used 01/14/25 10:41 PHQ-9: PHQ-9 Score PHQ-9: Total score 0 01/14/25 11:32 Depression Screening Interpretation: Negative Thrive Assessment: Date of Thrive Assessment Date Thrive assessed 01/14/25 01/14/25 10:46 Const General: no acute distress HENMT Head: Yes normal to inspection Ears: hearing grossly normal bilaterally Face and sinus: Yes normal facial exam Mouth: Normal oral and palatal mucosa present Eyes General: appearance normal, both eyes and all related structures Neck Neck: Yes no lymphadenopathy and Yes supple Resp Effort & Inspection: normal respiratory effort Auscultation: clear to auscultation bilaterally Cardio Rhythm: regular rhythm Heart sounds: S1 normal heart sound present and S2 normal heart sound present GI Inspection: Yes normal to inspection Palpation (GI): Soft to palpation Percussion: Yes normal to percussion Auscultation: normal bowel sounds Coding Level of Care Code Est Pt Prev Care >65y(52728) Diagnoses HTN (hypertension) I10 Hyperlipidemia E78.5 DM2 (diabetes mellitus, type 2) E11.9 Tobacco abuse Z72.0 Arrhythmia I49.9 Additional Codes JADEN-7 Assessment Billing - JADEN-7 Assessment Tool: JADEN-7 Assessment 37203 ([id number]) PHQ-9 - 52909 - PHQ-9 Billing: Yes ([id number]) Assessment & Plan Assessment & Plan (1) HTN (hypertension): Comment: White coat syndrome Code(s): I10 - Essential (primary) hypertension Category: Medical Plan: cont meds (2) Hyperlipidemia: Comment: Atorvastatin caused constipation Code(s): E78.5 - Hyperlipidemia, unspecified Category: Medical Plan: start Crestor 20 mg (3) DM2 (diabetes mellitus, type 2): Comment: Patient refused Pneumovax Code(s): E11.9 - Type 2 diabetes mellitus without complications Category: Medical Plan: A1C 6.7, continue ADA diet regular exercise metformin follow-up in 3 months with a fasting labs before (4) Tobacco abuse: Comment: Patient declined referral to lung cancer screening program 08/10, 11/2023 Code(s): Z72.0 - Tobacco use Category: Medical Plan: Tobacco quitting discussed with the patient (5) Arrhythmia: Comment: Echo nl EF, Nl valves 08/2020, Sotalol discontinued by cardiology 10/09 Code(s): I49.9 - Cardiac arrhythmia, unspecified Category: Medical Plan: For history of arrhythmias and new onset dyspnea on exertion obtain echocardiogram to evaluate for ejection fraction and regional wall motion abnormalities Orders: Orders AMB EKG-In Office Today I10 - Essential (primary) hypertension, I49.9 - Cardiac arrhythmia, unspecified, R06.09 - Other forms of dyspnea Comprehensive [place]. Panel Fast 3 Months E11.9 - Type 2 diabetes mellitus without complications, E78.5 - Hyperlipidemia, unspecified, I10 - Essential (primary) hypertension Complete Blood Count Auto Diff 3 Months E11.9 - Type 2 diabetes mellitus without complications, E78.5 - Hyperlipidemia, unspecified, I10 - Essential (primary) hypertension Hemoglobin A1c 3 Months E11.9 - Type 2 diabetes mellitus without complications, E78.5 - Hyperlipidemia, unspecified, I10 - Essential (primary) hypertension CA echo transthoracic complete Today I49.9 - Cardiac arrhythmia, unspecified, R06.09 - Other forms of dyspnea Medications: New rosuvastatin (Crestor) 20 mg PO DAILY 90 tabs 1RF
[2025-01-14 10:37] VITALS: BP 120/76; PULSE 74; RESP 18; TEMP 36.6; O2SAT 96; BMI 27.4
== END 2025-01-14 11:43 | disposition home or self-care (01) ==
LOC: HO.HMCC 10:35
PROVIDERS: PCP Internal Medicine; Visit Provider Internal Medicine
DX: Z00.00 Encounter for general adult medical examination without abnormal findings (principal); E11.9 Type 2 diabetes mellitus without complications; I10 Essential (primary) hypertension; E78.5 Hyperlipidemia, unspecified; Z72.0 Tobacco use; I49.9 Cardiac arrhythmia, unspecified

== ENCOUNTER → 2025-01-14 10:34 | Outpatient (BNVA) | payer MEDICARE, SELFPAY | PROVIDERS: PCP Internal Medicine; Visit Provider Internal Medicine | DX: I10 Essential (primary) hypertension (principal); E78.5 Hyperlipidemia, unspecified; E11.9 Type 2 diabetes mellitus without complications; I49.9 Cardiac arrhythmia, unspecified; R06.09 Other forms of dyspnea; F17.210 Nicotine dependence, cigarettes, uncomplicated | CPT/HCPCS: 96127; 99397 ==

== ENCOUNTER → 2025-03-09 08:57 | Outpatient (REF) | payer MEDICARE, SELFPAY ==
--- NOTE | 2025-03-09 09:01 | CA_ITS ---
Transthoracic Echocardiogram Patient (Last, First, Middle): Mary Ann Joyce, Gender: M Date of : 1950 Age: 74 Procedure Date: 03/09/2025 Procedure Type: Transthoracic Echocardiogram Location: OP Height: 167.64 cm Weight: 77.11 kg BSA: 1.87 m2 Heart Rate: bpm BP: 122 / 60 mmHg Brake Machine Operator: Referring MD: Radha Culp MD Design Technician: Chaz Gordon MD Symptoms: I49.9 - Cardiac arrhythmia, unspecified R06.09 dyspnea Study Quality: Good ECG Rhythm: Sinus Conclusions: - 1. Normal LV ejection fraction 55-60% with mild LVH with impaired relaxation filling pattern 2. Normal cardiac valvular Doppler 3. Normal RV systolic pressure 4. No pericardial effusion Findings Left Ventricle Normal left ventricular size and systolic function. There is mildly increased left ventricular wall thickness. The visually estimated ejection fraction is between 55-60%. Spectral Doppler is indicative of an impaired relaxation filling pattern. E/E prime ratio is between 8 and 15 consistent with indeterminate filling pressures. Right Ventricle Normal right ventricular cavity size and systolic function. Atria The left atrium is likely dilated. There is no evidence of interatrial shunt. The right atrium is normal in size. Aortic Valve Normal aortic valve structure and function. There is no aortic valve stenosis. There is no aortic valve regurgitation. Mitral Valve Normal mitral valve structure and function. There is trace mitral valve regurgitation. There is no mitral valve stenosis. Pulmonic Valve The pulmonic valve is likely normal. Tricuspid Valve Normal tricuspid valve structure. There is trace tricuspid valve regurgitation. The right ventricular systolic pressure is normal. The right ventricular systolic pressure is 19 mmHg. Normal right atrial pressure. There is no evidence of pulmonary hypertension. Great Vessels All visible segments of the aorta are normal in size. The pulmonary artery was not well visualized. There is no dilatation of the ascending aorta measuring 3.20 cm. Venous The inferior vena cava is normal in size and collapses greater than 50% with inspiration. Pericardium/Pleural There is no evidence of pericardial effusion. Prior Study Comparison No significant change compared to prior study dated: 09/09/2020. Measurements 2D Linear Measurements IVSd: 1.32 0.6-0.9/0.6-1.0 cm LVIDd: 4.95 3.9-5.3/4.2-5.9 cm LVIDd Index: 2.65 2.4-3.2/2.2-3.1 cm/m2 LVIDs: 2.99 2.0-3.6 cm LVPWd: 1.28 0.7-1.1 cm Ao Root: 3.40 2.1-3.5 cm LA Diam: 3.60 2.7-3.8/3.0-4.0 cm LAIDs Index: 1.93 1.5-2.3 cm/m2 LV Mass: 321.44 67-162/88-224 g LV Mass Index: 171.90 43-95/49-115 g/m2 LVOT Diam: 2.10 3.0+(-)1.3 cm 2D Systolic Function EF 4C: 62.10 >55% EF 2C: 60.60 >55% EF BiP: 59.40 >55% Mitral Valve MV Pk E: 0.69 MV PK A: 1.08 MV Decel Time: 225.00 E/A: 0.60 E'Lateral: 7.18 E'Medial: 5.55 E/E' Med: 12.50 E/E' Lat: 9.70 PHT: 66.00 MVA PHT: 3.33 Decel [place]: 3.09 Aortic Valve AoV Pk Jesus: 1.65 AoV Mn Jesus: 1.10 AoV VTI: 0.37 AoV Pk Grad: 11.00 Aov Mn Grad: 6.00 JANETH Cont.VTI: 2.17 LVOT LVOT Pk Jesus: 1.02 LVOT Mn Jesus: 0.66 LVOT VTI: 0.23 LVOT Pk Grad: 4.00 LVOT Mn Grad: 3.00 LVOT Diam: 2.10 LVOT Area: 3.46 Diastolic Function MV Pk E: 0.69 MV Pk A: 1.08 E/A: 0.60 E'Medial: 5.55 E/E' Med: 12.50 E' Laterial: 7.18 E/E' Lat: 9.70 Right Ventricle TAPSE (mm): 28.00 TVS' Jesus: 15.00 Tricuspid Valve TR Pk Jesus: 1.98 TR Pk Grad: 16.00 RA Press: 3.00 RVSP: 19.00 Great Vessels Aorta Ao Root-2D: 3.40 2.0-3.7 cm Ao Asc: 3.20 2.1-3.4 cm Pulmonary Valve PV Pk Jesus: 1.27 Peak PV Grad: 6.00 Updated in Other Vendor System with Status of Final Chaz Gordon MD electronically signed on 03/09/2025 2:45:21 PM with status of Final
== END ==
LOC: HO.CARD 08:57
PROVIDERS: PCP Internal Medicine; Visit Provider Internal Medicine
DX: I49.9 Cardiac arrhythmia, unspecified (principal); R06.09 Other forms of dyspnea
CPT/HCPCS: 93306

== ENCOUNTER → 2025-03-09 09:01 | Outpatient (BNV) | payer MEDICARE, SELFPAY | PROVIDERS: PCP Internal Medicine; Visit Provider Internal Medicine Cardiovascular Disease | DX: I51.7 Cardiomegaly (principal) | CPT/HCPCS: 93306 ==

== ENCOUNTER 2025-04-07 10:49 | Inpatient (IN) | payer MEDICARE, SELFPAY ==
[2025-04-07] VITALS (8 sets, daily range): BP systolic 121–175; BP diastolic 56–96; PULSE 63–79; RESP 16–18; TEMP 36.6–38.6; O2SAT 94–98; BMI 26.6
--- NOTE | ~2025-04-07 | MR_ITS ---
EXAMINATION: MR BRAIN WITHOUT CONTRAST CLINICAL INFORMATION: Dizziness, slurred speech, nausea and vomiting. COMPARISON: No prior MRI. CT head and CT temporal bones 04/07/2025. TECHNIQUE: MRI of the brain was obtained using routine sequences without contrast. FINDINGS: There is diffusion restriction identified involving the right greater than left superior cerebellar hemispheres, including the superior cerebellar vermis, the bilateral inferior colliculi, and the left hippocampus. Patchy tiny foci are also seen in the left occipital pole. Findings are consistent with acute/subacute infarction. There is minimal associated mass effect and edema of the affected structures without impending herniation, midline shift, or ventriculomegaly. There is mild hemorrhagic transformation identified only visible on the gradient sequences within the superior cerebellum right greater than left. There is otherwise no evidence of gross intracranial hemorrhage. Of note, there is high signal with loss of flow void within the V4 segment of the right vertebral artery (series 9, image 2; series 8, image 2; series 12, image 2). Major flow voids are otherwise preserved within the skull base. Ventricles, sulci, and cisterns are normal in size and configuration for patient age. No shift of midline. No abnormal hemosiderin deposition is identified. Aside from the infarcted regions, there are a few scattered punctate and minimally confluent foci of white matter T2 hyperintensity in the periventricular, subcortical, and hemispheric deep white matter. These foci are nonspecific but statistically relate to mild small vessel ischemic changes. Midline structures appear normally formed. The pituitary gland appears normal. Posterior fossa structures appear normal. Cerebellar tonsils are appropriately located. The globes and orbital contents demonstrate no abnormalities. Paranasal sinuses are clear bilaterally. The mastoids and tympanic cavities are normally aerated. Extracranial soft tissues demonstrate no abnormalities. No suspicious bone marrow changes are evident. Atlantoaxial joint is normal.. MR/MR head/brain wo con IMPRESSION: 1. Patchy acute/subacute infarction of the right greater than left superior cerebellar hemispheres, including the cerebellar vermis, the bilateral inferior colliculi, and also involving the entire left hippocampus. Patchy foci seen in the left occipital pole as well. Vascular distribution includes the bilateral superior cerebellar arteries, the left middle and posterior choroidal arteries, and left posterior cerebral artery. 2. There is high T1 signal in the V4 segment of the right vertebral artery, with loss of flow void, suggesting possible thrombosis of this vessel. Right vertebral dissection is a definite consideration. 3. There is mild swelling of the affected structures without significant mass effect, midline shift, or impending herniation. 3. There is evidence of micro-hemorrhagic transformation of the cerebellar infarcts. This critical result was discussed with Dr. Dick Ramsay via secure text at 1:26 PM, 04/08/2025. It was ascertained that the content and urgency of the report was understood at the time of direct communication. Electronically signed by: Moe Red MD 04/08/2025 01:28 PM [facility]
--- NOTE | ~2025-04-07 | CT_ITS ---
EXAMINATION: CTA NECK WITH CONTRAST (STROKE) CTA BRAIN WITH CONTRAST (STROKE) CLINICAL INFORMATION: Concerning vertebral dissection. Acute hemorrhagic stroke, posterior cerebral circulation. COMPARISON: Correlated to CT brain dated April 07, 2025 and recent MRI brain dated April 08, 2025 at 12:26 PM TECHNIQUE: CTA of the head and neck was performed in the axial plane from the mediastinum to the skull vertex using 70 mL Omnipaque 350 intravenous contrast. Additional reformatted multiplanar images including maximum intensity projection MIP images are generated on the CT workstation. This CT examination was performed using dose optimization techniques as appropriate, variously including the following: *Automated exposure control *Adjustment of mA and/or kV according to patient size (this includes techniques or standardized protocols for targeted exams where dose is matched to indication/reason for exam; i.e. extremities or head) *Use of iterative reconstruction technique DLP: 1676 mGy-cm FINDINGS: The degree of stenosis determined by criteria similar to NASCET. Brain: There is grade 1 matter effacement and hypodensity with the isointense component centered in the superior anterior lateral right cerebellum white matter into the cerebellar vermis and superior medial left cerebellum causing mass effect and narrowing the superior aspect of the fourth ventricle. There is mass effect upon the right brachial pontis. There is CSF at the craniocervical junction/medulla oblongata upper cervical spinal cord. Calcified plaques in the V4 segments of the vertebral artery with a dominant right vertebral artery. There is cope-white matter effacement and hypodensity involving the left hippocampus. Bilateral multifocal patchy and confluent deep periventricular white matter hypodensity. No gross midline shift or hydrocephalus. No gross than 1 or herniation. No overt intracranial hemorrhage. Calcified plaques in the cavernous supracavernous segments both ICAs. Chest CTA: Mixed plaques throughout the aortic arch. No focal stenosis. No intimal flap. Normal diameter. Mixed plaques at the origin of the brachiocephalic trunk and the left subclavian artery. Neck CTA: Right CCA: Tortuosity. Normal patency. No focal stenosis. No intimal flap. Right ICA: Calcified plaque in the carotid bulbs proximal ICA representing 90% stenosis. No intimal flap. Left CCA: Normal patency. No focal stenosis. No intimal flap. Tortuosity. Left ICA: Calcified plaque in the carotid bulb and proximal ICA. Normal patency. No focal stenosis. No intimal flap. Tortuosity. V1/V2 segments: Normal patency. Tortuosity in the proximal segment. No focal stenosis. No intimal flap. Both origin from the subclavian arteries. Right vertebral artery is dominant. Brain CTA: Anterior cerebral circulation: ICAs: Calcified plaques in the petrous, cavernous supraclinoid segments pronounced on the right ICA with the 70% stenosis at the right supraclinoid segment. Normal patency. MCA's: Normal patency. No focal stenosis. No abrupt cut off. Bifurcation/trifurcation demonstrated no vascular irregularity. ACAs: Absent/atretic right A1 segment. Normal patency of the right A2 A3 segment via left BUDDY. Anterior communicating artery is patent. Ophthalmic arteries are patent without vascular irregularity at the origin. Right posterior communicating artery is robust joint in the right P2 segment. The left posterior communicating artery is not identified. Posterior cerebral circulation: V3/V4 segments: Dominant right vertebral artery. Calcified plaques right and left vertebral arteries. There is an abrupt cut off in the distal right V4 segment with distal reconstitution. There is a probable left vertebral artery ending in a left posterior inferior cerebellar artery. The basilar artery demonstrates small caliber without intimal flap. No aneurysm in the basilar artery tip. The anterior inferior cerebellar arteries are patent. The right superior cerebellar artery demonstrates no IV contrast in the distal segment. The left superior cerebellar artery is patent from the proximal to mid segment. wired sweatband cutter: Absent right P1 segment. Right posterior communicating artery joins the right ROUSTABOUT. Left CCA is patent without focal stenosis or abrupt cut off. Ancillary findings: No main cerebral venous sinus thrombosis. CT/CT angio head neck IMPRESSION: No vertebral artery dissection. 90% stenosis secondary to calcified plaque, right ICA. origin right ROUSTABOUT. Atherosclerosis disease with high degree stenosis cavernous supracavernous segment right ICA. Probable occluded distal right superior cerebellar artery and to a lesser extent left superior cerebellar artery. 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 Concerning stroke cytotoxic edema right superior cerebellum narrowing the superior fourth ventricle without overt hydrocephalus. This critical test result is communicated to: Requesting physician Dr. Bar Ramsay at 2:36 PM on April 08, 2025. Electronically signed by: Eyal Bautista MD 04/08/2025 03:00 PM [facility]
--- NOTE | ~2025-04-07 | CT_ITS ---
EXAMINATION: CT TEMPORAL BONES. CLINICAL INFORMATION: Dizziness. Left ear effusion. Vomiting. COMPARISON: Correlated to CT head dated April 07, 2025 TECHNIQUE: Contiguous axial images through the temporal bones with bone algorithm. Sagittal and coronal reformatted images acquired. This CT examination was performed using dose optimization techniques as appropriate, variously including the following: *Automated exposure control *Adjustment of mA and/or kV according to patient size (this includes techniques or standardized protocols for targeted exams where dose is matched to indication/reason for exam; i.e. extremities or head) *Use of iterative reconstruction technique DLP: 308 mGy-cm FINDINGS: RIGHT PETROUS BONE: External auditory canal: Patent. No focal stenosis. No soft tissue lesions. Tympanic cavity: Aerated and well pneumatized. There is a 1.7 mm round soft tissue in the medial wall above the promontory on an adjacent to the tympanic segment of the facial nerve. Tympanic membrane: No thickened. Ossicles: Intact with normal alignment. Tegmen tympani: Intact. Sinus tympani: Aerated. Oval window and round window: Aerated. Scutum: Intact. Fallopian canal/labyrinthine, geniculate, tympanic and mastoid segments: Intact without bony erosions. Aditus at antrum, mastoid antrum and mastoid cells: Well pneumatized and aerated. Cochlear and vestibule: Intact with 2 1/2 turns in the cochlear. Semicircular canals are intact.. Cochlear and vestibular aqueducts: Not enlarged. Internal auditory canal: Intact without erosions. Internal jugular bulb and carotid canal: Intact and normal position. Temporal mandibular joint: No gross abnormality. LEFT PETROUS BONE: External auditory canal: Patent. No focal stenosis. No soft tissue lesion. Tympanic cavity: Well aerated. There is a 1.8 mm round soft tissue density in the medial wall just above the promontory on an adjacent to the tympanic segment of the facial nerve. Tympanic membrane: No thickened. Ossicles: Intact with normal alignment. Tegmen tympani: Intact. Sinus tympani: Aerated. Oval window and round window: Aerated. Scutum: Intact. Fallopian canal/labyrinthine, geniculate, tympanic and mastoid segments: Intact. No bony erosions. Aditus at antrum, mastoid antrum and mastoid cells: Well pneumatized and aerated without air-fluid levels. Cochlear and vestibule: Intact. 2 1/2 turns in the cochlear. 7 single canals are intact. Cochlear and vestibular aqueducts: Not enlarged. Internal auditory canal: Intact. No bony erosions. Internal jugular bulb and carotid canal: Intact. Normal position. Temporal mandibular joint: Intact without gross abnormality. Ancillary findings: Poor dentition. Probable old traumatic deformities in the nasal bones in the anterior nasal spine of the maxilla. Calcified plaques in the cavernous supracavernous segments both ICAs and the V4 segments of the vertebral arteries.. CT/CT mastoid IMPRESSION: Concerning glomus tympanic, bilaterally. Electronically signed by: Eyal Bautista MD 04/07/2025 02:09 PM EST
--- NOTE | ~2025-04-07 | XR_ITS ---
EXAMINATION: XR CHEST CLINICAL INFORMATION: Cough COMPARISON: None available. TECHNIQUE: Frontal view of the chest was obtained. FINDINGS: There are low lung volumes with vascular crowding. There is linear density in the right lung base. Heart size is within normal limits. No pleural effusion is identified. XR/XR chest 1V IMPRESSION: Linear density in the right lung base probably represents atelectasis, though pneumonia is not ruled out. Electronically signed by: Dar Robles MD 04/07/2025 03:13 PM [facility]
--- NOTE | ~2025-04-07 | CT_ITS ---
EXAMINATION: CT HEAD WITHOUT CONTRAST CLINICAL INFORMATION: dizziness x 1 week COMPARISON: None available. TECHNIQUE: Contiguous axial imaging was performed from the skull base to vertex without intravenous administration of contrast. This CT examination was performed using dose optimization techniques as appropriate, variously including the following: *Automated exposure control *Adjustment of mA and/or kV according to patient size (this includes techniques or standardized protocols for targeted exams where dose is matched to indication/reason for exam; i.e. extremities or head) *Use of iterative reconstruction technique FINDINGS: There is no acute ischemic change. There is no intracranial hemorrhage. There is no mass-effect or midline shift. Basal cisterns and ventricles are within normal limits for age/cerebral volume. Orbits are symmetrical and unremarkable. Minimal frothy density is present in the posterior left sphenoid sinus. There are no bony abnormalities. CT/CT head/brain wo IV con IMPRESSION: No acute intracranial abnormality. Minimal left sphenoid sinus changes/disease. Electronically signed by: Dar Robles MD 04/07/2025 12:39 PM [facility]
--- NOTE | 2025-04-07 11:04 | ED.GENADULT ---
HPI - General Adult General Chief complaint: General Medical Stated complaint: Nausea Vomiting Diarrhea Time Seen by Provider: 04/07/25 11:27 Source: patient, family and old records reviewed Mode of arrival: ambulatory Limitations: no limitations History of Present Illness ED Provider: NOY PEARSON narrative: 74-year-old male with past medical history of hypertension, hyperlipidemia, right bundle branch block, AAA, diabetes, here with c/o not feeling well for 1 week he has been complaining of hearing muffled voices initially in the left ear but not the right. He feels dizzy and weak when he stands. He is very lethargic per the daughter. He feels off balance and has difficulty walking. They deny any fever. He has had nausea as well as vomiting of bile but he denies any pain in the abdomen. The daughter denies any sick contacts, travel, trauma to the head. She states he very much does not seem like his self he is usually active person and generally tries to take vitamins to make himself better. She notes he is old school . Related Data Previous Rx's ?Medication ?Instructions ?Recorded bisacodyl 5 mg tablet,delayed 10 mg (2 x 5 mg) PO ONCE 1 day #2 08/05/21 release (Dulcolax (bisacodyl)) tabs polyethylene glycol 3350 17 238 g PO ONCE #238 grams 08/05/21 gram/dose oral powder (Miralax) ciclopirox 8 % topical solution 1 appl topical BEDTIME 4 weeks 11/16/21 #6.6 mL nicotine 10 mg inhalation 1 inh inhalation Q2-4H PRN 11/29/22 cartridge (Nicotrol) nicotine cravings #168 ea omeprazole 20 mg capsule,delayed 20 mg PO DAILY #90 caps 12/03/23 release metformin 750 mg tablet,extended 1,500 mg (2 x 750 mg) PO DAILY 06/12/24 release 24 hr #180 tabs amlodipine 10 mg tablet 10 mg PO DAILY #90 tabs 09/12/24 rosuvastatin 20 mg tablet (Crestor) 20 mg PO DAILY #90 tabs 01/14/25 Allergies Allergy/AdvReac Type Severity Reaction Status Date / Time atorvastatin AdvReac Constipatio Verified 04/07/25 11:05 n Review of Systems Review of Systems: Constitutional : No Fever, positive Chills, positive Fatigue ENT/Mouth : No sore throat, No Rhinorrhea, positive ear pain, positive abnormal sounds Eyes: No Eye Pain, No Swelling, No Redness Cardiovascular : No Chest Pain, No SOB, No Dyspnea on Exertion Respiratory : No Cough, No Sputum Gastrointestinal : No Nausea, No Vomiting, No Diarrhea, No abdominal Pain Genitourinary : No Dysuria, No Urinary Frequency, No Hematuria, Musculoskeletal : No joint pain, No Myalgias, No Joint Swelling Skin : No Skin Lesions, No rash Neuro : No Weakness, No Numbness, No Dizziness, positive Headache All other systems reviewed and are negative ON LICENSE OF [facility] Past Medical History Attestation statement: The following information was validated with the patient. Source: old records reviewed Medical History Annual physical exam DM2 (diabetes mellitus, type 2) FHx: abdominal aortic aneurysm Arrhythmia RBBB Tobacco abuse Panic attack Hyperlipidemia HTN (hypertension) Surgical History Hx of colonoscopy H/O inguinal hernia repair Family History Family History Father Stroke Mother No problems noted. Social History Social History Household Members Other:: , Housing: House Alcohol intake: current Alcohol intake frequency: does not drink Patient Tobacco Use Status: Current everyday Tobacco user Tobacco use type: Cigarette Cigarettes Per Day: 7 Years Smoked: 50 Smoked in Last 30 Days: Yes e-Cigarette/Vaping Use: Never Used Use of substances other than those prescribed or required for medical reasons: No Advance Directives: No Advance Directives Information Provided: Yes Do you have a plan to hurt others: No Plan service: No Current occupational status: retired Current occupational exposures/hazards: No Cognitive needs: No Hearing needs: No Vision needs: Yes Physical Exam ED Vital Signs: Vital Signs - 24 hr 04/07/25 11:04 04/07/25 12:56 04/07/25 14:46 Temperature 98 F 98.8 F Pulse Rate 63 63 79 Respiratory Rate 18 18 18 Blood Pressure 175/91 H 135/70 137/70 Pulse Oximetry 98 97 98 Oxygen Delivery Method Room Air Room Air Room Air BMI result Body Mass Index 26.6 Appearance: Alert. Oriented X3. Mild acute distress. He can not tolerate moving air much exam due to dizziness then vomit Eyes: Pupils equal, round and reactive to light. ENT: Pharynx dry mucous membrane, right ear appears normal, left ear he has opacified bulging tympanic membrane but no perforation he clearly has signs of acute otitis media. Neck: Normal inspection. Neck supple. CVS: Normal heart rate and rhythm. Pulses normal. Respiratory: No respiratory distress. Breath sounds normal. Abdomen: Soft and nontender. Skin: Skin warm and dry. Normal skin color. Normal skin turgor. Extremities: No lower extremity edema. No calf ttp Neuro: Oriented X 3. No motor deficit. No sensory deficit. CN2-12 intact diffusely he has 5/5 strength but he can not stand or walk due to vomiting Course Course Course Narrative: This is an RME: Additional HPI, ROS, PE not included below will be deferred to primary provider. RME assessment and note performed by: Paula Nguyen PA-C This is a [id number], with a hx of DM2, HLD, HTN, who presents to the Er with complaints to the ED with complaints of left ear pressure, nausea, vomiting, headache, and dizziness x 1 week. Patient is neurologically intact, no focal deficits on examination. TMs unremarkable. Plan: Labs, EKG, Further ER evaluation needed. Reevaluation(s) Reevaluation #1: 2:42 PM 04/07/2025 (NOY VARGHESE): The patient is still having dizziness when he moves, then started dry heaving nausea at this time we will try p.o. meclizine. Reevaluation #2: 3:05 PM 04/07/2025 (NOY VARGHESE): Patient can not get up at this time. He still is symptomatic. We will provide meclizine and Compazine, he has a cough every time I go into the room, at this time I am going to obtain chest x-ray to evaluate for pneumonia. 4:01 PM 04/07/2025 (NOY VARGHESE): Patient is still unable to ambulate has nausea vomiting every time he gets up, still is dizzy when he moves at this time I have ordered IV Valium I think he needs to be admitted he has been down here for 5 hours signs symptoms for 1 week. He can follow up with ENT as an outpatient for the glomus these are not acute and likely chronic Medications Administered Discontinued Medications Generic Name Dose Route Start Last Admin Trade Name Quiana PRN Reason Stop Dose Admin Lactated Ringer's 1,000 mls @ 999 mls/hr 04/07/25 12:10 04/07/25 13:35 Lr IV 04/07/25 13:10 Infused .Q1H1M ONE Infusion Ceftriaxone Sodium 2 gm/ 50 mls @ 100 mls/hr 04/07/25 12:10 04/07/25 13:35 Sodium Chloride IV 04/07/25 12:39 Infused ONCE ONE Infusion Meclizine HCl 25 mg 04/07/25 14:41 04/07/25 14:45 Meclizine Hcl 25 Mg Tablet PO 04/07/25 14:42 25 mg ONCE ONE Administration Ondansetron HCl 4 mg 04/07/25 12:10 04/07/25 12:34 Ondansetron Hcl 4 Mg/2 Ml Vial IVPUSH 04/07/25 12:11 4 mg ONCE ONE Administration Prochlorperazine Edisylate 5 mg 04/07/25 14:49 04/07/25 15:51 Prochlorperazine Edisylate 10 Mg/2 Ml Vial IVPUSH 04/07/25 14:50 Not Given ONCE ONE Medical Decision Making Medical Decision Making MDM Narrative: 74-year-old male with past medical history of hypertension, hyperlipidemia, AAA, diabetes, here with c/o not feeling well along with left ear pain, as well as hearing muffled voices or change in people's voices, he has had these symptoms for 1 week. He is not able to walk without getting dizzy or vomiting. At this time I am going to obtain labs, EKG, ortho vital signs if he tolerates though I doubt he will, CT scan of head as well as mastoid to look for any erosion or deeper space infection. I am going to start on empiric antibiotics. Patient is very weak appearing but has no focal deficits on my initial exam in the ED Differential Diagnosis Differential Diagnoses: The differential diagnosis associated with the presentation includes Viral syndrome, acute otitis media, vertigo, intracranial mass, mastoiditis Admission/Observation Consideration of admission/observation: Escalation of care including admission/observation considered I can not get him to tolerate p.o., he can not ambulate, he continues to have nausea vomiting and dizziness even after meclizine, Valium, Zofran Would refer to ENT as an outpatient for the glomus I do not think that this needs any emergent intervention these are benign soft tissue lesions Consult Healthcare Provider Management of the patient was discussed with: Hospitalist (Will admit) Lab Data MDM Lab Attestation statement: I reviewed the patient's lab results. 04/07/25 11:44 04/07/25 11:44 Labs: Lab Results 04/07/25 04/07/25 04/07/25 Range/Units 11:44 12:33 12:51 WBC 10.6 (4.8-10.8) X10*3/uL RBC 5.25 (4.60-5.80) X10*6/uL Hgb 15.2 (14.0-18.0) g/dl Hct 46.2 (42.0-52.0) % MCV 88.0 (80.0-98.0) fL MCH 29.0 (27.0-33.0) pg MCHC 32.9 (31.0-36.0) g/dl RDW 14.1 (11.0-16.0) % Plt Count 165 (160-400) X10*3/uL MPV 11.2 (9.4-12.4) fL Immature Gran % (Auto) 0.5 H (0.0-0.4) % Neut % (Auto) 76.9 H (45-73) % Lymph % (Auto) 17.2 L (20-40) % [place] % (Auto) 4.6 (2-11) % Eos % (Auto) 0.5 (0-4) % Baso % (Auto) 0.3 (0-2) % Lymph # (Auto) 1.8 (1.2-4.9) X10*3/uL [place] # (Auto) 0.5 (0.1-1.2) X10*3/uL Eos # (Auto) 0.1 (0.0-0.4) X10*3/uL Baso # (Auto) 0.0 (0.0-0.2) X10*3/uL Abs Immat Gran (auto) 0.05 H (0.00-0.03) X10*3/uL Absolute Neuts (auto) 8.2 (2.0-8.3) x10*3/uL Absolute Nucleated RBC 0.000 (0.0-0.012) X10*3/uL Nucleated RBC % (auto) 0.0 (0.0-0.2) /100WBC ESR 9 (0-15) MM/HR Sodium 141 (135-145) mmol/L Potassium 4.6 (3.3-5.1) mmol/L Chloride 108 (96-108) mmol/L Carbon Dioxide 23 (22-29) mmol/L Anion Gap 15 (12-20) BUN 18 H (9-16) mg/dL Creatinine 0.94 (0.5-1.4) mg/dL Estim Creat Clear Calc 63.4 Estimated GFR > 60 Random Glucose 219 H (60-115) mg/dL Lactic Acid 2.0 (0.5-2.0) mmol/L Calcium 9.7 (8.4-10.2) mg/dL Magnesium 1.9 (1.6-2.6) mg/dL Total Bilirubin 0.5 (0.0-1.0) mg/dL Direct Bilirubin 0.2 (0.0-0.5) mg/dL AST 29 (5-37) U/L ALT 42 H (0-40) U/L Alkaline Phosphatase 127 H (39-117) U/L Troponin I High Sens < 2.7 (<3.5-35.0) ng/L Total Protein 7.8 (6.5-8.0) g/dL Albumin 4.7 (3.5-5.0) g/dL Influenza Type A (PCR) NEGATIVE (Negative) Influenza Type B (PCR) NEGATIVE (Negative) RSV RNA Qual (PCR) NEGATIVE (Negative) SARS-CoV-2 RNA (RT-PCR) NEGATIVE (Negative) Independent Interpretation I performed an independent interpretation of an: EKG, Plain X-Ray (Possible right lower lobe pathology) and CT Scan (sphenoid sinusitis , has tympanic low mass bilaterally 1.5 mm) Interpretation: Rate: 62 Rhythm: Normal sinus rhythm [place]: Normal Normal P waves. First-degree AV block Right bundle-branch block. ST T wave : Inverted T-waves in V1 V2 V3 but no ST-elevation qTC: 503 prior studies: The study has been interpreted contemporaneously by me. . Radiology Impression Discussion of test interpretation with radiology: I have reviewed the radiologist's reading. Independent Historian Clinical information obtained from an independent historian. History obtained from or confirmed by: Other (Daughter) External Record Review External record reviewed: Outpatient record Discharge Plan Discharge Clinical Impression: Acute sphenoidal sinusitis, Otitis media, CAP (community acquired pneumonia), Vertigo Patient Disposition: Admitted As Inpatient Print Language: Japanese
--- NOTE | 2025-04-07 11:09 | ECG_ITS ---
Test Reason : CP Blood Pressure : */* mmHG Vent. Rate : 62 BPM Atrial Rate : 62 BPM P-R Int : 204 ms QRS Dur : 176 ms QT Int : 496 ms P-R-T Axes : 24 4 9 degrees QTcB Int : 503 ms Normal sinus rhythm Right bundle branch block Abnormal ECG No previous ECGs available Referred By: Paula Nguyen Electronically Signed By: NESS CLARKE
[2025-04-07 11:48] LABS: MANUAL DIFF FLAG NO
[2025-04-07 11:52] LABS: Hematocrit 46.2 % (42.0-52.0); Hemoglobin 15.2 g/dl (14.0-18.0); Imm Gran Abs Auto 0.05 X10*3/uL (0.00-0.03); Imm Gran Pct Auto 0.5 % (0.0-0.4); Lymphocytes Absolute Auto 1.8 X10*3/uL (1.2-4.9); Mean Corpuscular HGB Conc 32.9 g/dl (31.0-36.0); Mean Corpuscular Hemoglobin 29.0 pg (27.0-33.0); Mean Corpuscular Volume 88.0 fL (80.0-98.0); NRBC Abs Auto 0.000 X10*3/uL (0.0-0.012); NRBC Pct Auto 0.0 /100WBC (0.0-0.2); Platelet Count 165 X10*3/uL (160-400); Red Blood Count 5.25 X10*6/uL (4.60-5.80); White Blood Count 10.6 X10*3/uL (4.8-10.8)
[2025-04-07 12:04] LABS: Alanine Aminotransferase 42 U/L (0-40); Albumin Level 4.7 g/dL (3.5-5.0); Alkaline Phosphatase 127 U/L (39-117); Anion Gap 15 (12-20); Aspartate Amino Transferase 29 U/L (5-37); Blood Urea Nitrogen 18 mg/dL (9-16); Calcium 9.7 mg/dL (8.4-10.2); Carbon Dioxide 23 mmol/L (22-29); Chloride 108 mmol/L (96-108); Creatinine Clr Calc Pharmacy 63.4; Estimated Glomerular Filt Rate > 60; Magnesium 1.9 mg/dL (1.6-2.6); Potassium 4.6 mmol/L (3.3-5.1); Sodium 141 mmol/L (135-145); Total Protein 7.8 g/dL (6.5-8.0)
[2025-04-07 12:12] LABS: Troponin-I High Sensitivity < 2.7 ng/L (<3.5-35.0)
[2025-04-07] MEDS: Lactated Ringers 1,000 ML 999 ML IV (12:34)
[2025-04-07 13:37] LABS: Resp Syncy Virus RNA Qual PCR NEGATIVE (Negative); SARS COV2 PCR INHOUSE NEGATIVE (Negative)
[2025-04-07] MEDS: diazePAM 10 MG/2 ML CARTRIDGE 2.5 MG IVPUSH (16:02)
--- NOTE | 2025-04-07 17:22 | P.HPHOSP_ITS ---
History of Present Illness Date of Service: 04/07/25 Chief Complaint: nausea and vomiting 74-year-old man with cold-like symptoms over the last week that his daughter reported. He has started telling her that everyone sounded like they were muffled, mostly in the left ear. And he started feeling dizzy with standing. Patient reported feeling very off balance and was having a difficult time walking. He denied any fever, chills, diarrhea. In the ER he was noted to be having a lot of nausea and vomiting mostly bile. He denied any abdominal pain. He was not noted to have any fever or leukocytosis. Flu, RSV and COVID negative. Head CT showed no acute, head and mastoid CT showed concerning globulus tympanic, bilaterally, chest x-ray showed linear density in the right lung base likely representing atelectasis versus pneumonia. In the ER. Patient was given IV fluid, Zofran, Rocephin, meclizine, Compazine, Valium. He will be admitted for further management and treatment of acute otitis media and pneumonia. Review of Systems 2 Review of Systems: Denies any recent fever chills or decrease in appetite respiratory denies any shortness of breath or cough cardiovascular denied chest pain gastrointestinal see HPI genitourinary denies any dysuria frequency or hematuria musculoskeletal denies any joint pain or swelling neuropsych denies any weakness or seizures all other systems reviewed are negative FORMERLY [facility], [facility]–1983 Medical History (Updated 04/07/25 @ 17:24 by Nicole Bedoya NP) DM2 (diabetes mellitus, type 2) FHx: abdominal aortic aneurysm RBBB Tobacco abuse Panic attack Hyperlipidemia HTN (hypertension) Family History Father Stroke Mother No problems noted. Surgical History Hx of colonoscopy H/O inguinal hernia repair Social History Household Members Other:: , Housing: House Alcohol intake: current Alcohol intake frequency: does not drink Patient Tobacco Use Status: Current everyday Tobacco user Tobacco use type: Cigarette Cigarettes Per Day: 7 Years Smoked: 50 Smoked in Last 30 Days: Yes e-Cigarette/Vaping Use: Never Used Use of substances other than those prescribed or required for medical reasons: No Advance Directives: No Advance Directives Information Provided: Yes Do you have a plan to hurt others: No Plan service: No Current occupational status: retired Current occupational exposures/hazards: No Cognitive needs: No Hearing needs: No Vision needs: Yes Meds Allergies Allergy/AdvReac Type Severity Reaction Status Date / Time atorvastatin AdvReac Constipatio Verified 04/07/25 11:05 n Active Medications: Current Medications Acetaminophen (Acetaminophen 325 Mg Tablet) 650 mg PO Q6H PRN PRN Reason: Pain, Mild 1-3,fever,headache Amoxicillin/Clavulanate Potassium (Amoxicillin/Potassium Clav 500 Mg Tablet) 500 mg PO Q12H JUANY Calcium Carbonate (Calcium Carbonate 750 Mg Tab.Chew) 750 mg PO Q4H PRN PRN Reason: Heartburn Dextrose (Dextrose 50 % 25 Gm/50 Ml Syringe) 25 gm IVPUSH Q15M PRN; Protocol PRN Reason: per Hypoglycemia Standing Ord. Diazepam (Diazepam 10 Mg/2 Ml Cartridge) 5 mg IVPUSH Q6H PRN PRN Reason: Nausea and Vomiting Enoxaparin Sodium (Enoxaparin Sodium 40 Mg/0.4 Ml Syringe) 40 mg SUBCUT Q24H [facility] Glucose (Glucose Gel 15 Gm Gel..Gram.) 15 gm PO Q15M PRN; Protocol PRN Reason: per Hypoglycemia Standing Ord. Ceftriaxone Sodium 1 gm/ (Sodium Chloride) 50 mls @ 100 mls/hr IV Q24H [facility] Insulin Human Lispro (Insulin Lispro 100 Unit/Ml 3 Ml Vial) 0 unit SUBCUT QIDACHS JUANY; Protocol Magnesium Hydroxide (Milk Of Magnesia 30 Ml Oral.Susp) 30 ml PO DAILY PRN PRN Reason: Constipation Melatonin (Melatonin 3 Mg Tablet) 6 mg PO BEDTIME PRN PRN Reason: Insomnia Metoclopramide HCl (Metoclopramide Hcl 10 Mg/2 Ml Vial) 10 mg IVPUSH Q4H PRN PRN Reason: Nausea and Vomiting Morphine Sulfate (Morphine Sulfate 4 Mg/Ml Cartridge) 2 mg IVPUSH Q4H PRN; Protocol PRN Reason: Pain, Severe (Pain Scale 7-10) Sodium Chloride (0.9 % Sodium Chloride Flush 3 Ml Syringe) 3 ml IVFLUSH QSHIFT [facility] Home Medications ?Medication ?Instructions ?Recorded ?Confirmed ?Last Taken ?Type atorvastatin 80 mg tablet 80 mg PO BEDTIME 04/07/25 U nknown History Physical Exam 2 Vital Signs and Narrative: Vital Signs: Last Vital Signs Temp 98.8 F 04/07/25 12:56 Pulse 77 04/07/25 16:06 Resp 18 04/07/25 16:06 BP 121/62 04/07/25 16:06 Pulse Ox 97 04/07/25 16:06 O2 Del Method Room Air 04/07/25 16:06 BMI result Body Mass Index 26.6 Appearing in no acute distress head is normocephalic atraumatic eyes pupils are PERRLA sclera is anicteric mouth throat mucous membranes are intact and moist neck is supple no lymphadenopathy, no JVD noted lung sounds are clear to auscultation heart regular rate rhythm, clear S1, S2 positive bowel sounds, abdomen is soft, nontender neuro patient is alert x3, no focal deficits Noted erythema and edema to left ear with fluid-filled eardrum Results Labs 04/07/25 11:44 04/07/25 11:44 Labs: Laboratory Results - last 24 hr 04/07/25 04/07/25 04/07/25 11:44 12:33 12:51 MCV 88.0 MCH 29.0 MCHC 32.9 RDW 14.1 Plt Count 165 MPV 11.2 Immature Gran % (Auto) 0.5 H Neut % (Auto) 76.9 H Lymph % (Auto) 17.2 L [place] % (Auto) 4.6 Eos % (Auto) 0.5 Baso % (Auto) 0.3 Lymph # (Auto) 1.8 [place] # (Auto) 0.5 Eos # (Auto) 0.1 Baso # (Auto) 0.0 Abs Immat Gran (auto) 0.05 H Absolute Neuts (auto) 8.2 Absolute Nucleated RBC 0.000 Nucleated RBC % (auto) 0.0 ESR 9 Anion Gap 15 Estim Creat Clear Calc 63.4 Estimated GFR > 60 Random Glucose 219 H Lactic Acid 2.0 Calcium 9.7 Magnesium 1.9 Total Bilirubin 0.5 Direct Bilirubin 0.2 AST 29 ALT 42 H Alkaline Phosphatase 127 H Troponin I High Sens < 2.7 Total Protein 7.8 Albumin 4.7 Influenza Type A (PCR) NEGATIVE Influenza Type B (PCR) NEGATIVE RSV RNA Qual (PCR) NEGATIVE SARS-CoV-2 RNA (RT-PCR) NEGATIVE Imaging Radiologist's Impressions: Impressions Head CT 04/07/25 12:19 IMPRESSION: No acute intracranial abnormality. Minimal left sphenoid sinus changes/disease. Electronically signed by: Dar Robles MD 04/07/2025 12:39 PM EST RP Head/Mastoid CT 04/07/25 13:20 IMPRESSION: Concerning glomus tympanic, bilaterally. Electronically signed by: Eyal Buatista MD 04/07/2025 02:09 PM EST RP Chest X-Ray 04/07/25 15:00 IMPRESSION: Linear density in the right lung base probably represents atelectasis, though pneumonia is not ruled out. 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 We will treat with Augmentin Pain management and supportive care Pneumonia possibly viral versus community-acquired Continue Rocephin and Augmentin May use supplemental oxygen if needed to keep oxygen saturation greater than 91% Albuterol as needed PRN Robitussin for cough Vertigo with nausea and vomiting Likely secondary to otitis media infection Treat with meclizine as needed and antibiotics for infection Hypertension Stable blood pressure Diabetes mellitus type 2 Sliding scale, ADA diet Hyperlipidemia Continue statin GERD Continue PPI DVT prophylaxis with Lovenox Full code Quality Stroke Does the patient have a stroke diagnosis?: No VTE Prior VTE?: No VTE Risk Level:: Medical - moderate - high VTE Device Contraindication: N/A - Device Ordered VTE Drug Contraindication: N/A - Med Ordered
--- NOTE | 2025-04-07 17:46 | PC.NURSE ---
patient unable to tolerate orthostatic vitals, upon sitting or standing patient becomes nauseous and starts vomiting
--- NOTE | 2025-04-07 18:27 | PHA.MEDREC ---
Addendum entered by Franko Arboleda [facility] 04/07/25 18:53: med rec reviewed Original Note: Pharmacy Consult ? Medication Reconciliation Pharmacy has completed the medication reconciliation. Spoke with pt and pt daughter at bedside (pt daughter had Pt Rx bottles on hand) pt has bottle of Sotolol 80mg tabs written from 06/03/2023 for 90 days that pt confirmed he takes 1/2 tab daily of for his heart rhythm problems, per pt and daughter; pt taking Rosuvastatin 20mg tabs once at bedtime now instead of Atorvastatin 80mg once at bedtime (Atorvastatin LF 03/03 for 90 day & Rosuvastatin LF 01/14 for 90 days and pt states he takes all his medications at bedtime.
--- NOTE | 2025-04-07 19:22 | PC.NURSE ---
20 g IV in left AC
--- NOTE | 2025-04-07 20:51 | PC.NURSE ---
patient's daughter was going home, patient restless in ed1 and concerned for pt getting oob/fall. pt moved to ed22 which is closer to nurses station. chair alarm and video monitoring in place. call bacon within reach.
[2025-04-07 20:54] LABS: Glucose, Whole Blood 196 mg/dL (60-115)
--- NOTE | 2025-04-07 22:02 | PC.NURSE ---
Addendum entered by Alecia Donahue RN 04/08/25 00:02: At 2204, MD Gipson notified of mental status. Pt altered and restless attempting to get out of bed. Follows some commands. Safety measures in place. Addendum entered by Alecia Donahue RN 04/07/25 22:11: Pt more alert on second interaction, now following commands. Pt requiring frequent redirection to stay on stretcher. Camera and bed alarm in place, yellow socks on. Original Note: Attempted to give pt PO Tylenol for fever, pt unable to take PO at this time. Provider notified.
--- NOTE | 2025-04-07 23:49 | HO.NURTONUR ---
Pt is a 74 y.o. male coming from home with dizziness and left ear pain. Family at bedside reports pt has been feeling generally unwell and has not been acting like his normal self. PMH HTN, HLD, diabetes, right bundle branch block, AAA. Labs grossly unremarkable, covid/flu/RSV neg. CXR concerning for right lower lobe PNA. Pt was started on PO abx for ear infection. Medicated per [facility] orders. VSS, a&ox2. 20 g IV left AC. Fall precautions in place, camera at bedside.
[2025-04-08] VITALS (8 sets, daily range): BP systolic 131–170; BP diastolic 63–77; PULSE 52–73; RESP 13–18; TEMP 36.8–37.3; O2SAT 94–96; BMI 26.6
--- NOTE | 2025-04-08 03:00 | PC.NURSE ---
This RN assumed care of patient at 02:17. Patient came up very sleepy and was not alert enough to complete a thorough admission assessment. Camera in room for safety as pt tries to get out of bed occasionally. Patient currently resting in bed, respirations even & unlabored.
[2025-04-08 07:24] LABS: Glucose, Whole Blood 136 mg/dL (60-115)
[2025-04-08 07:58] LABS: Appearance Urine Clear; Glucose Urine UA Negative (Negative); PH 5.5 (5.0-9.0); Specific Gravity - Urine 1.025 (1.005-1.025); UMIC TRIGGER UACC YES
[2025-04-08 08:44] LABS: Anion Gap 11 (12-20); Blood Urea Nitrogen 18 mg/dL (9-16); Calcium 9.3 mg/dL (8.4-10.2); Carbon Dioxide 27 mmol/L (22-29); Chloride 105 mmol/L (96-108); Creatinine Clr Calc Pharmacy 65.5; Estimated Glomerular Filt Rate > 60; Magnesium 2.0 mg/dL (1.6-2.6); Potassium 3.8 mmol/L (3.3-5.1); Sodium 139 mmol/L (135-145)
--- NOTE | 2025-04-08 10:36 | HO.PM.IMPN ---
Subjective Subjective Date of Service: 04/08/25 Interval History: slurred speech Physical Exam Exam: Exam: General: lethargic O X 3, no acute distress Resp: CTA bilateral, no accessory muscles used CVS: S1,S2,RRR GI: soft, non tender, non distended Neuro: motor grossly intact, slurred speech Psych: appropriate affect, appropriate insight Vital Signs: Vital Signs: Last Vital Signs Temp 99.1 F 04/08/25 07:37 Pulse 73 04/08/25 07:37 Resp 16 04/08/25 07:37 BP 131/63 04/08/25 07:37 Pulse Ox 96 04/08/25 07:37 O2 Del Method Room Air 04/08/25 07:37 BMI result Body Mass Index 26.6 Objective Data Active Medications Acetaminophen (Acetaminophen 325 Mg Tablet) 650 mg PO Q6H PRN PRN Reason: Pain, Mild 1-3,fever,headache Albuterol Sulfate (Albuterol Sulfate (0.083%) 2.5 Mg/3 Ml Vial.Neb) 2.5 mg INHALE Q4H PRN PRN Reason: wheezing Amlodipine Besylate (Amlodipine Besylate 10 Mg Tablet) 10 mg PO BEDTIME [facility]; Protocol Amoxicillin/Clavulanate Potassium (Amoxicillin/Potassium Clav 500 Mg Tablet) 500 mg PO Q12H [facility] Last Admin: 04/08/25 05:25 Dose: 500 mg Documented By: HEIDI Calcium Carbonate (Calcium Carbonate 750 Mg Tab.Chew) 750 mg PO Q4H PRN PRN Reason: Heartburn Dextrose (Dextrose 50 % 25 Gm/50 Ml Syringe) 25 gm IVPUSH Q15M PRN; Protocol PRN Reason: per Hypoglycemia Standing Ord. Diazepam (Diazepam 10 Mg/2 Ml Cartridge) 5 mg IVPUSH Q6H PRN PRN Reason: Nausea and Vomiting Enoxaparin Sodium (Enoxaparin Sodium 40 Mg/0.4 Ml Syringe) 40 mg SUBCUT Q24H [facility] Last Admin: 04/07/25 17:38 Dose: 40 mg Documented By: VIVI Glucose (Glucose Gel 15 Gm Gel..Gram.) 15 gm PO Q15M PRN; Protocol PRN Reason: per Hypoglycemia Standing Ord. Guaifenesin/Dextromethorphan (Guaifenesin Dm 100/10/5 Ml 5 Ml Syrup) 5 ml PO Q6H PRN PRN Reason: Cough Ceftriaxone Sodium 1 gm/ (Sodium Chloride) 50 mls @ 100 mls/hr IV Q24H [facility] Insulin Human Lispro (Insulin Lispro 100 Unit/Ml 3 Ml Vial) 0 unit SUBCUT QIDACHS [facility]; Protocol Last Admin: 04/08/25 07:27 Dose: Not Given Documented By: TEAGAN Non-Admin Reason: No Insulin Coverage Magnesium Hydroxide (Milk Of Magnesia 30 Ml Oral.Susp) 30 ml PO DAILY PRN PRN Reason: Constipation Meclizine HCl (Meclizine Hcl 12.5 Mg Tablet) 12.5 mg PO Q8H PRN PRN Reason: Vertigo Melatonin (Melatonin 3 Mg Tablet) 6 mg PO BEDTIME PRN PRN Reason: Insomnia Metoclopramide HCl (Metoclopramide Hcl 10 Mg/2 Ml Vial) 10 mg IVPUSH Q4H PRN PRN Reason: Nausea and Vomiting Last Admin: 04/07/25 17:43 Dose: 10 mg Documented By: VIVI Morphine Sulfate (Morphine Sulfate 4 Mg/Ml Cartridge) 2 mg IVPUSH Q4H PRN; Protocol PRN Reason: Pain, Severe (Pain Scale 7-10) Omeprazole (Omeprazole 20 Mg Capsule.Dr) 20 mg PO DAILY@0630 PRN PRN Reason: Acid Reflux Sodium Chloride (0.9 % Sodium Chloride Flush 3 Ml Syringe) 3 ml IVFLUSH QSHIFT [facility] Last Admin: 04/08/25 08:51 Dose: Not Given Documented By: TEAGAN Non-Admin Reason: Previously Administered Sotalol HCl (Sotalol Hcl 80 Mg Tablet) 40 mg PO BEDTIME [facility] Labs 04/07/25 11:44 04/08/25 08:15 Labs: Laboratory Results - last 24 hr 04/07/25 04/07/25 04/07/25 11:44 12:33 12:51 MCV 88.0 MCH 29.0 MCHC 32.9 RDW 14.1 Plt Count 165 MPV 11.2 Immature Gran % (Auto) 0.5 H Neut % (Auto) 76.9 H Lymph % (Auto) 17.2 L [place] % (Auto) 4.6 Eos % (Auto) 0.5 Baso % (Auto) 0.3 Lymph # (Auto) 1.8 [place] # (Auto) 0.5 Eos # (Auto) 0.1 Baso # (Auto) 0.0 Abs Immat Gran (auto) 0.05 H Absolute Neuts (auto) 8.2 Absolute Nucleated RBC 0.000 Nucleated RBC % (auto) 0.0 ESR 9 Anion Gap 15 Estim Creat Clear Calc 63.4 Estimated GFR > 60 POC Glucose Random Glucose 219 H Lactic Acid 2.0 Calcium 9.7 Magnesium 1.9 Total Bilirubin 0.5 Direct Bilirubin 0.2 AST 29 ALT 42 H Alkaline Phosphatase 127 H Troponin I High Sens < 2.7 Total Protein 7.8 Albumin 4.7 Urine Color Urine Appearance Urine pH Ur Specific [place] Urine Protein Urine Glucose (UA) Urine Ketones Urine Blood Urine Nitrite Ur Leukocyte Esterase Urine RBC Urine WBC Ur Squamous Epith Cells Urine Bacteria Hyaline Casts Influenza Type A (PCR) NEGATIVE Influenza Type B (PCR) NEGATIVE RSV RNA Qual (PCR) NEGATIVE SARS-CoV-2 RNA (RT-PCR) NEGATIVE 04/07/25 04/08/25 04/08/25 20:50 06:50 07:18 MCV MCH MCHC RDW Plt Count MPV Immature Gran % (Auto) Neut % (Auto) Lymph % (Auto) [place] % (Auto) Eos % (Auto) Baso % (Auto) Lymph # (Auto) [place] # (Auto) Eos # (Auto) Baso # (Auto) Abs Immat Gran (auto) Absolute Neuts (auto) Absolute Nucleated RBC Nucleated RBC % (auto) ESR Anion Gap Estim Creat Clear Calc Estimated GFR POC Glucose 196 H 136 H Random Glucose Lactic Acid Calcium Magnesium Total Bilirubin Direct Bilirubin AST ALT Alkaline Phosphatase Troponin I High Sens Total Protein Albumin Urine Color Yellow Urine Appearance Clear Urine pH 5.5 Ur Specific [place] 1.025 Urine Protein Trace Urine Glucose (UA) Negative Urine Ketones 15 Urine Blood Large (3+) H Urine Nitrite Negative Ur Leukocyte Esterase Negative Urine RBC >20 H Urine WBC 0-5 Ur Squamous Epith Cells 0-2 Urine Bacteria None Seen Hyaline Casts 0-2 Influenza Type A (PCR) Influenza Type B (PCR) RSV RNA Qual (PCR) SARS-CoV-2 RNA (RT-PCR) 04/08/25 08:15 MCV MCH MCHC RDW Plt Count MPV Immature Gran % (Auto) Neut % (Auto) Lymph % (Auto) [place] % (Auto) Eos % (Auto) Baso % (Auto) Lymph # (Auto) [place] # (Auto) Eos # (Auto) Baso # (Auto) Abs Immat Gran (auto) Absolute Neuts (auto) Absolute Nucleated RBC Nucleated RBC % (auto) ESR Anion Gap 11 L Estim Creat Clear Calc 65.5 Estimated GFR > 60 POC Glucose Random Glucose 140 H Lactic Acid Calcium 9.3 Magnesium 2.0 Total Bilirubin Direct Bilirubin AST ALT Alkaline Phosphatase Troponin I High Sens Total Protein Albumin Urine Color Urine Appearance Urine pH Ur Specific [place] Urine Protein Urine Glucose (UA) Urine Ketones Urine Blood Urine Nitrite Ur Leukocyte Esterase Urine RBC Urine WBC Ur Squamous Epith Cells Urine Bacteria Hyaline Casts Influenza Type A (PCR) Influenza Type B (PCR) RSV RNA Qual (PCR) SARS-CoV-2 RNA (RT-PCR) Assessment and Plan (1) Arrhythmia: Status: Acute Plan 74M PMH htn, hld, RBBB, AAA, DM, unspecified arrythmia on sotalol, presented with N/V, slurred speech, found to have fever acute metabolic encephalopathy and fevers possibly due to acute otitis media versus pneumonia continue ceftriaxone and Augmentin, follow up cultures vertigo with nausea and vomiting check MRI IV fluids hypertension continue amlodipine diabetes insulin sliding scale unspecified arrhythmia patient and son not clear on indication for sotalol, no documented history of AFib DVT prophylaxis with Lovenox full code reason for continued hospitalization: workup slurred speech, altered mental status, fevers Quality Stroke Does the patient have a stroke diagnosis?: No VTE Prior VTE?: No VTE Risk Level:: Medical - moderate - high VTE Device Contraindication: N/A - Device Ordered VTE Drug Contraindication: N/A - Med Ordered
[2025-04-08 11:28] LABS: Glucose, Whole Blood 150 mg/dL (60-115)
--- NOTE | 2025-04-08 13:58 | PM.EVENT ---
Event Note Date of Service: 04/08/25 Event Note: MRI with acute/subacute cva transfer to tele, neuro eval, check lipids, increase statin, CTA ?antiplatelet - has microhemorhage Time Spent With Patient Time: Total time managing care of this patient today ____ minutes.
--- NOTE | 2025-04-08 14:03 | MHC.CM.PN ---
pt lives with his had no servixes has own ride home dc plan home n/s
[2025-04-08] MEDS: iohexoL 350 MG/ML 75 ML INFUS..BTL 70 ML IV (14:17)
[2025-04-08 14:18] LABS: Cholesterol 117 mg/dL (<200); HDL Cholesterol 46 mg/dL (>40); Triglycerides 100 mg/dL (<150)
--- NOTE | 2025-04-08 14:55 | P.CNNE_ITS ---
History of Present Illness Data of Consult Service Date: 04/08/25 Primary Care Provider: Radha Culp MD [facility] Reason for consult: Stroke with dizziness, dysarthria This is a 74-year-old man with cold-like symptoms over the last week, muffledhearing, mostly in the left ear. He started feeling dizzy with standing, feeling very off balance and was having a difficult time walking. He denied any fever, chills, diarrhea. In the ER he was noted to be having a lot of nausea and vomiting . Head CT showed no acute, head and mastoid CT showed concerning globulus tympanic, MRI done today shows acute infarcts involving and they inferior and mid right cerebellum small portion of the left cerebellum the entire vermis and a major portion of the medial left temporal lobe including the hippocampus. These are acute to subacute infarcts in distribution of branches of the basilar and vertebral arteries. The CTA is suggestive of tight stenosis in the dominant right vertebral artery distally just prior to the origin of the basilar artery. The right KETTLE LOADER is also absent. [facility] Past Medical History Medical History (Updated 04/08/25 @ 16:08 by Lizette Murphy MD) DM2 (diabetes mellitus, type 2) FHx: abdominal aortic aneurysm RBBB Tobacco abuse Panic attack Hyperlipidemia HTN (hypertension) Family History Family History Father Stroke Mother No problems noted. Surgical History Surgical History Hx of colonoscopy H/O inguinal hernia repair Social History Social History Household Members: Family Household Members Other:: , Housing: House Alcohol intake: current Alcohol intake frequency: does not drink Patient Tobacco Use Status: Tobacco use Unknown Tobacco use type: Cigarette Cigarettes Per Day: 7 Years Smoked: 50 Smoked in Last 30 Days: Yes e-Cigarette/Vaping Use: Never Used Use of substances other than those prescribed or required for medical reasons: No Currently Displaying Signs/Symptoms of Drug Intoxication Withdrawal: No Advance Directives: No Advance Directives Information Provided: Yes Do you have a plan to hurt others: No Plan Recently lost weight without trying: Unsure Nutrition Risks: No Nutritional Risk service: No Current occupational status: retired Current occupational exposures/hazards: No Cognitive needs: No Hearing needs: No Vision needs: Yes Meds Allergies Allergy/AdvReac Type Severity Reaction Status Date / Time atorvastatin AdvReac Constipatio Verified 04/07/25 11:05 n Active Medications: Current Medications Acetaminophen (Acetaminophen 325 Mg Tablet) 650 mg PO Q6H PRN PRN Reason: Pain, Mild 1-3,fever,headache Albuterol Sulfate (Albuterol Sulfate (0.083%) 2.5 Mg/3 Ml Vial.Neb) 2.5 mg INHALE Q4H PRN PRN Reason: wheezing Amlodipine Besylate (Amlodipine Besylate 10 Mg Tablet) 10 mg PO BEDTIME [facility]; Protocol Amoxicillin/Clavulanate Potassium (Amoxicillin/Potassium Clav 500 Mg Tablet) 500 mg PO Q12H [facility] Last Admin: 04/08/25 05:25 Dose: 500 mg Calcium Carbonate (Calcium Carbonate 750 Mg Tab.Chew) 750 mg PO Q4H PRN PRN Reason: Heartburn Dextrose (Dextrose 50 % 25 Gm/50 Ml Syringe) 25 gm IVPUSH Q15M PRN; Protocol PRN Reason: per Hypoglycemia Standing Ord. Diazepam (Diazepam 10 Mg/2 Ml Cartridge) 5 mg IVPUSH Q6H PRN PRN Reason: Nausea and Vomiting Enoxaparin Sodium (Enoxaparin Sodium 40 Mg/0.4 Ml Syringe) 40 mg SUBCUT Q24H [facility] Last Admin: 04/07/25 17:38 Dose: 40 mg Glucose (Glucose Gel 15 Gm Gel..Gram.) 15 gm PO Q15M PRN; Protocol PRN Reason: per Hypoglycemia Standing Ord. Guaifenesin/Dextromethorphan (Guaifenesin Dm 100/10/5 Ml 5 Ml Syrup) 5 ml PO Q6H PRN PRN Reason: Cough Ceftriaxone Sodium 1 gm/ (Sodium Chloride) 50 mls @ 100 mls/hr IV Q24H [facility] Last Infusion: 04/08/25 14:26 Dose: Infused Sodium Chloride (Ns) 1,000 mls @ 75 mls/hr IVCONT .[id number] [facility] Last Admin: 04/08/25 11:08 Dose: 75 mls/hr Insulin Human Lispro (Insulin Lispro 100 Unit/Ml 3 Ml Vial) 0 unit SUBCUT QIDACHS [facility]; Protocol Last Admin: 04/08/25 11:26 Dose: Not Given Magnesium Hydroxide (Milk Of Magnesia 30 Ml Oral.Susp) 30 ml PO DAILY PRN PRN Reason: Constipation Meclizine HCl (Meclizine Hcl 12.5 Mg Tablet) 12.5 mg PO Q8H PRN PRN Reason: Vertigo Melatonin (Melatonin 3 Mg Tablet) 6 mg PO BEDTIME PRN PRN Reason: Insomnia Metoclopramide HCl (Metoclopramide Hcl 10 Mg/2 Ml Vial) 10 mg IVPUSH Q4H PRN PRN Reason: Nausea and Vomiting Last Admin: 04/07/25 17:43 Dose: 10 mg Morphine Sulfate (Morphine Sulfate 4 Mg/Ml Cartridge) 2 mg IVPUSH Q4H PRN; Protocol PRN Reason: Pain, Severe (Pain Scale 7-10) Omeprazole (Omeprazole 20 Mg Capsule.Dr) 20 mg PO DAILY@0630 PRN PRN Reason: Acid Reflux Pravastatin Sodium (Pravastatin Sodium 80 Mg Tablet) 80 mg PO BEDTIME [facility] Sodium Chloride (0.9 % Sodium Chloride Flush 3 Ml Syringe) 3 ml IVFLUSH QSHIFT [facility] Last Admin: 04/08/25 08:51 Dose: Not Given Sotalol HCl (Sotalol Hcl 80 Mg Tablet) 40 mg PO BEDTIME [facility] Home Medications ?Medication ?Instructions ?Recorded ?Confirmed ?Last Taken ?Type amlodipine 10 mg tablet 10 mg PO BEDTIME 04/07/2504/06/25 History metformin 750 mg tablet,extended 1,500 mg PO BEDTIME 1 06/07/24 04/07/25 04/06/25 History release 24 hr omeprazole 20 mg capsule,delayed 20 mg PO DAILY@0630 P RN Acid Reflux 04/07/25 04/07/25 Unknown History release rosuvastatin 20 mg tablet (Crestor) 20 mg PO BEDTIME 1 06/07/24 04/07/25 04/06/25 History sotalol 80 mg tablet 40 mg PO BEDTIME 04/07/2504/06/25 History Physical Exam 2 Vital Signs: Vital Signs: Last Vital Signs Temp 99.1 F 04/08/25 07:37 Pulse 73 04/08/25 07:37 Resp 16 04/08/25 07:37 BP 131/63 04/08/25 07:37 Pulse Ox 96 04/08/25 07:37 O2 Del Method Room Air 04/08/25 07:37 BMI result Body Mass Index 26.6 Neuro: Other: He is alert and oriented with a significant dysarthria. Tongue and palatal movements are normal. He has bilateral internuclear ophthalmoplegia with nystagmus on lateral gaze restriction of abduction bilaterally with diplopia on left lateral gaze. Strength is normal in all 4 extremities but he has some disc material and past-pointing with his hands right greater than left and ataxia on [id number] test. Gait was not tested. Sensory exam is normal , deep tendon reflexes are 2+ with flexor plantar responses Results Labs 04/07/25 11:44 04/08/25 08:15 Labs: BMP 04/08/25 08:15 Sodium 139 Potassium 3.8 Chloride 105 Carbon Dioxide 27 BUN 18 H Creatinine 0.91 Calcium 9.3 Urine 04/08/25 Range/Units 06:50 Urine Color Yellow Urine Appearance Clear Urine pH 5.5 (5.0-9.0) Ur Specific [place] 1.025 (1.005-1.025) Urine Protein Trace (Neg-Trace) mg/dL Urine Glucose (UA) Negative (Negative) mg/dL Microbiology Microbiology Results: Microbiology 04/07/25 12:46 Blood - Venous Blood Culture - Preliminary No growth after 24 hours. 04/07/25 12:33 Blood - Venous Blood Culture - Preliminary No growth after 24 hours. 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 All of this is in the posterior circulation suggesting a distal vertebral or basilar artery occlusive process. There is some edema in the posterior fossa causing compression of the 4th ventricle. Recommendations: He needs to be closely observed for acute deterioration from cerebellar edema in which case he may need emergency posterior fossa decompression. He should have a follow-up CT scan tomorrow morning to see that he is not compressing the 4th ventricle further and developing hydrocephalus. He can be started on aspirin and Plavix at this point. There is suggestion of some microhemorrhages therefore I would hesitate to put him on anticoagulation at this point. He might be better cared for in an ICU setting for the next 48 hours for closer observation. Swallowing evaluation. PT/OT. CTA has been done but has not been officially read. I do see a significant obstructive lesion in the distal dominant right vertebral artery at the onset of the basilar artery and occlusion of some of the cerebellar arteries. The patient is not a candidate for TNK or intervention. If he should deteriorate due to cerebellar edema then he will need neurosurgical evaluation promptly for posterior subtentorial decompression Procedures Date of Service Date of Service: 04/08/25
[2025-04-08 16:09] LABS: Glucose, Whole Blood 196 mg/dL (60-115)
[2025-04-08] MEDS: Aspirin Enteric Coated 81 MG TABLET.DR PO (16:42)
--- NOTE | 2025-04-08 16:56 | MHC.SL.SWA ---
Speech Pathologist Impression: Risk of Aspiration, Pharyngeal Dysphagia, Slurred Speech Risk of Aspiration Due to: Recent CVA Dysphasia Diet Status:Downgrade liquids to NTL Liquid Consistency and Strategies for Safe Swallow: Liquid Intake Recommendation: [place] Thick Solid Food Consistency: Dietary Recommendations: Regular Additional Modifications to Solid Foods: Oral Medication Intake: Whole with Puree Please contact the pharmacy regarding appropriate crushable or liquid drug formulations that are available whenever modified delivery is recommended. Supervision While Eating and Drinking for Safe Swallow: Total Assistance (1:1) Recommendation for Speech: Inpatient Speech Therapy Comment: Patient presents with slurred speech and mild pharyngeal dysphagia, in the setting of acute/subacute CVA. Patient with coughing episode after drinking thin liquids, better tolerated thickened liquid, and evidenced no difficulties with solids. Recommend continue on REGULAR texture diet and DOWNGRADE to NECTAR THICK liquids, pills WHOLE in PUREE. Patient will need 1:1 assistance feeding d/t vision difficulties and discoordination. [employer] to re-assess tomorrow a.m. Patient may need continued ST after discharge for dysphagia (if persistent) and/or dysarthria. [employer] Pan[employer] Trimmer Clinican/Clinical Fellow: No Supervisory Statement: I have reviewed and agree with the student/clinical fellow's documentation: N/A Speech Language Pathologist: Angelica Lang M.A., [facility] [employer]
--- NOTE | 2025-04-08 17:14 | PM.EVENT ---
Event Note Date of Service: 04/08/25 Event Note: Patient is a 74 Y M w/ hypertension, hyperlipidemia, diabetes mellitus, presenting to ED on 04/07 w/ vertiginous symptoms, thought to be due to acute otitis media, admitted medicine; on 04/08, patient developed worsening dizziness, nausea, and vomiting, prompting MRI c/f acute vs subaute cerebellar infarct; case discussed w/ outside facility, decision made to admit ICU for closer monitoring N: acute vs subacute cerebellar stroke, serial neurological exams, avoid patito hypertension/hypotension and electrolyte disturbances, appreciate neurology recommendations CV: hypertension, goal SBP <180, though avoid patito hypotension; of note, QTc prolongation, to closely monitor in setting of sotalol and antiemetic use R: no acute issues GI: NPO, pending nursing speech/swallow : no acute issues H: no acute issues; chemical DVT prophylaxis ID: question acute otitis media, ceftriaxone E: diabetes melitus, insulin sliding scale P: no acute issues Time Spent With Patient Time: Total time managing care of this patient today ____ minutes.
[2025-04-08 19:01] LABS: Anion Gap 13 (12-20); Blood Urea Nitrogen 16 mg/dL (9-16); Calcium 9.3 mg/dL (8.4-10.2); Carbon Dioxide 27 mmol/L (22-29); Chloride 102 mmol/L (96-108); Creatinine Clr Calc Pharmacy 62.1; Estimated Glomerular Filt Rate > 60; Magnesium 2.1 mg/dL (1.6-2.6); Potassium 3.9 mmol/L (3.3-5.1); Sodium 138 mmol/L (135-145)
--- NOTE | 2025-04-08 19:23 | PM.DS ---
DS: Providers Provider Date of Service: 04/08/25 Date of admission: 04/07/25 17:15 Date of discharge: 04/08/25 Primary care physician: Radha Culp MD Admitting clinician: Nicole Bedoya Attending physician on admission: Bar Ramsay Consults: 04/08/25 13:27 Consult to Neurology Routine Consulting Provider: [facility] Reason for consultation: slurred speech, n/v, ?right verterbral artery dissection Attending physician on discharge: Elisha Batista Discharging clinician: Megan Booker DS: Transfer Hospital Acceptance Reason for Transfer: Tertiary care Name of Facility: [facility] Accepting Provider: Yonathan Isabel DS: Diagnosis Discharge Diagnosis (1) 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 Status at Discharge Cognitive/behavioral status at discharge: Pt alert, oriented to self. Overall status at discharge: patient is not back to baseline Time Attestation Total time managing care of this patient today: 60 mintues. Discharge Coordination Time (in mins): 120 Quality: Safe Use of Opioids Does Pt have an Active Cancer Diagnosis on the Problem List?: No Quality: Stroke Does the patient have a stroke diagnosis?: Yes Reason for No Anti-thrombotic at DC: N/A - Med Ordered Reason for No Anticoagulant at DC: Not indicated Reason Not Initiating IV-Tpa: Contraindicated (microhemorrhage) Reason for No Anti-thrombotic by Day Two: N/A - Med Ordered Reason for No Statin at DC: N/A - Med Ordered Physical Exam Vital Signs: Vital Signs: Last Vital Signs Temp 99.1 F 04/08/25 18:17 Pulse 56 04/08/25 18:17 Resp 13 04/08/25 18:17 BP 155/73 H 04/08/25 18:17 Pulse Ox 95 04/08/25 18:17 O2 Del Method Room Air 04/08/25 18:17 BMI result Body Mass Index 26.6 Const: General: cooperative, no acute distress, alert and confusion Orientation/consciousness: oriented to person and confusion Limitations: altered mental status HEENT: Head: Yes normocephalic and Yes atraumatic General nose exam: Normal external nose present (Nares patent, septum midline, sinuses nontender bilaterally.) Mouth: Normal oral and palatal mucosa present (No thrush, tongue in midline, mucosa moist.) Throat: Yes other (No erythema, no exudate.) Eyes: Pupils: Pupil size comments on the right 4 and on the left 2 Neck: Neck: Yes supple (no thyromegaly, trachea midline.) Carotids: normal carotid upstroke Resp: Auscultation: clear to auscultation bilaterally (normal work of breathing, no accessory muscle use) Cardio: Jugular venous distension: no JVD Rate: regular rate Rhythm: regular rhythm Heart sounds: no gallops, no murmurs and no rubs Peripheral pulses: Peripheral pulses 2+ throughout GI: Palpation (GI): Soft to palpation (nondistended.) and nontender Neuro: Other: Mental status waxing and waning General: oriented to person, moves all extremities, no focal motor deficits and confusion Cranial nerves: Yes Facial sensation intact/muscles of mastication intact, Yes Nystagmus not present, Yes Normal facial strength present, Yes Midline tongue present, Yes Normal hearing present, Yes Ability to bilaterally rotate head present and Yes Ability to bilaterally elevate shoulders present Speech: Abnormal speech present slurred Motor exam (neuro): 5/5 motor strength present throughout Pupils: Normal pupillary reactivity/response: bilateral Extrem: General: Yes full ROM, Yes capillary refill normal and Yes no clubbing, cyanosis or edema Psych: Affect: normal affect Attitude: cooperative DS: Data Data Completed and Pending Labs on day of discharge: Laboratory Results - last 24 hr 04/07/25 04/08/25 04/08/25 20:50 06:50 07:18 Sodium Potassium Chloride Carbon Dioxide Anion Gap BUN Creatinine Estim Creat Clear Calc Estimated GFR POC Glucose 196 H 136 H Random Glucose Calcium Phosphorus Magnesium Triglycerides Cholesterol LDL Cholesterol, Calc HDL Cholesterol Urine Color Yellow Urine Appearance Clear Urine pH 5.5 Ur Specific [place] 1.025 Urine Protein Trace Urine Glucose (UA) Negative Urine Ketones 15 Urine Blood Large (3+) H Urine Nitrite Negative Ur Leukocyte Esterase Negative Urine RBC >20 H Urine WBC 0-5 Ur Squamous Epith Cells 0-2 Urine Bacteria None Seen Hyaline Casts 0-2 04/08/25 04/08/25 04/08/25 08:15 11:19 16:02 Sodium 139 Potassium 3.8 Chloride 105 Carbon Dioxide 27 Anion Gap 11 L BUN 18 H Creatinine 0.91 Estim Creat Clear Calc 65.5 Estimated GFR > 60 POC Glucose 150 H 196 H Random Glucose 140 H Calcium 9.3 Phosphorus Magnesium 2.0 Triglycerides 100 Cholesterol 117 LDL Cholesterol, Calc 51 HDL Cholesterol 46 Urine Color Urine Appearance Urine pH Ur Specific [place] Urine Protein Urine Glucose (UA) Urine Ketones Urine Blood Urine Nitrite Ur Leukocyte Esterase Urine RBC Urine WBC Ur Squamous Epith Cells Urine Bacteria Hyaline Casts 04/08/25 18:26 Sodium 138 Potassium 3.9 Chloride 102 Carbon Dioxide 27 Anion Gap 13 BUN 16 Creatinine 0.96 Estim Creat Clear Calc 62.1 Estimated GFR > 60 POC Glucose Random Glucose 147 H Calcium 9.3 Phosphorus 3.3 Magnesium 2.1 Triglycerides Cholesterol LDL Cholesterol, Calc HDL Cholesterol Urine Color Urine Appearance Urine pH Ur Specific [place] Urine Protein Urine Glucose (UA) Urine Ketones Urine Blood Urine Nitrite Ur Leukocyte Esterase Urine RBC Urine WBC Ur Squamous Epith Cells Urine Bacteria Hyaline Casts Preliminary micro results at discharge 04/07/25 12:46 Blood Culture - Preliminary Blood - Venous No growth after 24 hours. 04/07/25 12:33 Blood Culture - Preliminary Blood - Venous No growth after 24 hours. Imaging MRI - head: Radiologist's impression: ITS Impressions Head CT 04/07/25 12:19 IMPRESSION: No acute intracranial abnormality. Minimal left sphenoid sinus changes/disease. Electronically signed by: Dar Robles MD 04/07/2025 12:39 PM EST RP Head/Mastoid CT 04/07/25 13:20 IMPRESSION: Concerning glomus tympanic, bilaterally. Electronically signed by: Eyal Bautista MD 04/07/2025 02:09 PM EST RP Chest X-Ray 04/07/25 15:00 IMPRESSION: Linear density in the right lung base probably represents atelectasis, though pneumonia is not ruled out. Electronically signed by: Dar Robles MD 04/07/2025 03:13 PM EST RP Brain MRI 04/08/25 12:18 IMPRESSION: 1. Patchy acute/subacute infarction of the right greater than left superior cerebellar hemispheres, including the cerebellar vermis, the bilateral inferior colliculi, and also involving the entire left hippocampus. Patchy foci seen in the left occipital pole as well. Vascular distribution includes the bilateral superior cerebellar arteries, the left middle and posterior choroidal arteries, and left posterior cerebral artery. 2. There is high T1 signal in the V4 segment of the right vertebral artery, with loss of flow void, suggesting possible thrombosis of this vessel. Right vertebral dissection is a definite consideration. 3. There is mild swelling of the affected structures without significant mass effect, midline shift, or impending herniation. 3. There is evidence of micro-hemorrhagic transformation of the cerebellar infarcts. This critical result was discussed with Dr. Dick Ramsay via secure text at 1:26 PM, 04/08/2025. It was ascertained that the content and urgency of the report was understood at the time of direct communication. Electronically signed by: Moe Red MD 04/08/2025 01:28 PM Temporal Power Head/Neck CTA 04/08/25 14:04 IMPRESSION: No vertebral artery dissection. 90% stenosis secondary to calcified plaque, right ICA. 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 Atherosclerosis disease with high degree stenosis cavernous supracavernous segment right ICA. Probable occluded distal right superior cerebellar artery and to a lesser extent left superior cerebellar artery. 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 Concerning stroke cytotoxic edema right superior cerebellum narrowing the superior fourth ventricle without overt hydrocephalus. This critical test result is communicated to: Requesting physician Dr. Bar Ramsay at 2:36 PM on April 08, 2025. Electronically signed by: Eyal Bautista MD 04/08/2025 03:00 PM Temporal Power Discharge Plan Discharge Anticipated Discharge Date/Time: 04/08/25 21:00 Patient Disposition: Xfer Acute Care Hospital Discharge Diagnosis: Cerebellar infarction Referrals: Radha Culp MD [Primary Care Provider, Internal Medicine] - 1 Week Discharge Medications: No Action sotalol 80 mg tablet 40 mg PO BEDTIME amlodipine 10 mg tablet 10 mg PO BEDTIME omeprazole 20 mg capsule,delayed release(DR/EC) 20 mg PO DAILY@0630 PRN (Reason: Acid Reflux) metformin 750 mg tablet extended release 24 hr 1,500 mg PO BEDTIME rosuvastatin [Crestor] 20 mg tablet 20 mg PO BEDTIME Discharge Orders: Discharge Order (Routine); Ordered 04/08/25 Ordered By: Megan Booker Activity on Discharge: Rest with bed elevated Stand Alone Forms: Patient Portal Discharge page Print Language: Icelandic Care Plan Goals: Return to previous level of function Health Concerns: hypertension, hyperlipidemia, Diabetes Mellitus Plan of Treatment: Transfer to neurocritical care, closely monitor for neurological deterioration Assessment: Critical
--- NOTE | 2025-04-08 20:11 | PC.NURSE ---
Upon receiving RN to RN report and review of patient MRI and CT imagine, this RN reached out to MD about patient transfer to ICU (See MRI and CT imaging from today). The patient arrived to ICU, MD stated we will settle the patient, assess, and evaluate the need for interventions and care outside this facility. At the time of arrival to ICU (04/08/25 @ 18:10) patient was alert to self, location, name, and vague situation, regular cough and gag, pupils are unequal but reactive to light. At the time of assessment and arrival to ICU denies nausea, headache, dizziness, and pain. reports sound of a fan in the left ear continuously, left eye has double vision, and loss of coordination with looking to the right of the patient, right eye has loss of coordination and is unable to track/gaze to the right of patient. The patient is able to smile, show teeth, puff cheeks, close eyes tight and resist this RN attempt to open them, and raise eyebrows. Speech is slurred and with poor articulation, and the patient is drowsy requiring light shake while holding conversation. No difficulty with comprehension. Follows commands with 5/5 strength to all extremities, shrugs shoulders and is able to resist RN in all ranges of motion, able to turn head left and right, able to stick out tongue midline, left and right. Able to raise and hold both arms with minor coordination issues on the right arm with.
[2025-04-08 21:17] LABS: Glucose, Whole Blood 169 mg/dL (60-115)
--- NOTE | 2025-04-08 21:35 | PC.NURSE ---
Upon initial assessment at approximately?1900- Pt alert, oriented to self and place, vague to situation, and disoriented to time. Speech is slurred/mumbled. Pupils unequal, left 4mm and brisk, right 2mm and brisk.?Patient complaining of double vision, mild dizziness and a 3/10 constant dull headache. Denies any nausea. Strength 5/5 bilaterally, right UE uncoordinated movement when compared to left. SB/NSR on tele with BBB, HR 50-60s. SBP 140-160s. Lungs clear, SpO2 >92% on RA. Patient denies any SOB or cough. Abd soft, positive bowel sounds. No BM this shift. NPO. Patient due to void by 2100. OMID Booker aware of assessment.? 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 16Fr coude catheter placed, 475mls of dark red output, TRAY SERVICE WORKER aware.? Patient accepted to [facility] in [facility], [address] for higher level of care. Report given to ELIDA Jenkins at 2030, .? Patient transported via [facility], left unit at 2135. ELIDA Jenkins at receiving facility updated.? Family updated by OMID Booker.?No patient belongings. See EMR/ Flowsheet for further details.
--- NOTE | 2025-04-24 09:38 | MHC.STROKE ---
late entry 04/08/25 1530 NIH score evaluated during assessment/education NIH 3
== END 2025-04-08 21:35 | disposition short-term general hospital (02) | DRG 64 ==
LOC: HO.ED 16:03 → HO.EDOVER 17:19 → HO.S3 04-08 01:25 → HO.ICU 04-08 17:29
PROVIDERS: Internal Medicine; Physician Assistant Medical; Admitting Provider Nurse Practitioner Acute Care; Emergency Provider Emergency Medicine; PCP Internal Medicine; Visit Provider Internal Medicine Critical Care Medicine
DX: I63.541 Cerebral infarction due to unspecified occlusion or stenosis of right cerebellar artery (principal); G93.41 Metabolic encephalopathy; H66.92 Otitis media, unspecified, left ear; R29.703 NIHSS score 3; I10 Essential (primary) hypertension; E11.9 Type 2 diabetes mellitus without complications; E78.5 Hyperlipidemia, unspecified; K21.9 Gastro-esophageal reflux disease without esophagitis; Z20.822 Contact with and (suspected) exposure to COVID-19; Z79.84 Long term (current) use of oral hypoglycemic drugs; Z79.899 Other long term (current) drug therapy
CPT/HCPCS: 36415; 70450; 70481; 70496; 70498; 70551; 71045; 80048; 80061; 80076; 81001; 82947; 83605; 83735; 84100; 84484; 85025; 85652; 87040; 87637; 92610; 93005; 99285; J0131; J0696; J1650; J2405; J2765; J3360; J7120; Q9967

== ENCOUNTER → 2025-04-07 11:09 | Outpatient (BNV) | payer MEDICARE, SELFPAY | PROVIDERS: Emergency Provider Emergency Medicine; PCP Internal Medicine; Visit Provider Internal Medicine | DX: I45.10 Unspecified right bundle-branch block (principal) | CPT/HCPCS: 93010 ==

== ENCOUNTER → 2025-04-07 11:11 | Outpatient (BNV) | payer MEDICARE, SELFPAY | PROVIDERS: Emergency Provider Emergency Medicine; PCP Internal Medicine; Visit Provider Radiology Diagnostic Radiology | DX: H65.22 Chronic serous otitis media, left ear (principal); H74.8X9 Other specified disorders of middle ear and mastoid, unspecified ear; R42 Dizziness and giddiness; R11.10 Vomiting, unspecified; R05.9 Cough, unspecified | CPT/HCPCS: 70450; 70481; 71045 ==

== ENCOUNTER 2025-04-07 17:15 | Outpatient (BNV) | payer MEDICARE, SELFPAY | END 2025-04-08 12:18 | PROVIDERS: Admitting Provider Nurse Practitioner Acute Care; Emergency Provider Emergency Medicine; PCP Internal Medicine; Visit Provider Radiology Diagnostic Radiology | DX: I65.21 Occlusion and stenosis of right carotid artery (principal); I63.441 Cerebral infarction due to embolism of right cerebellar artery; I63.442 Cerebral infarction due to embolism of left cerebellar artery | CPT/HCPCS: 70496; 70498; 70551 ==

== ENCOUNTER → 2025-04-07 17:15 | Outpatient (BNV) | payer MEDICARE, SELFPAY | PROVIDERS: Admitting Provider Nurse Practitioner Acute Care; Emergency Provider Emergency Medicine; PCP Internal Medicine; Visit Provider Internal Medicine Critical Care Medicine | DX: I63.549 Cerebral infarction due to unspecified occlusion or stenosis of unspecified cerebellar artery (principal) | CPT/HCPCS: 99239; 99499 ==

== ENCOUNTER → 2025-04-07 17:15 | Outpatient (BNV) | payer MEDICARE, SELFPAY | PROVIDERS: Admitting Provider Nurse Practitioner Acute Care; Emergency Provider Emergency Medicine; PCP Internal Medicine; Visit Provider Psychiatry & Neurology Neurology | DX: I63.549 Cerebral infarction due to unspecified occlusion or stenosis of unspecified cerebellar artery (principal) | CPT/HCPCS: 99223 ==

== ENCOUNTER → 2025-04-07 17:15 | Outpatient (BNV) | payer MEDICARE, SELFPAY | PROVIDERS: Admitting Provider Nurse Practitioner Acute Care; Emergency Provider Emergency Medicine; PCP Internal Medicine; Visit Provider Nurse Practitioner Acute Care | DX: I10 Essential (primary) hypertension (principal) | CPT/HCPCS: 99223; 99233; 99499 ==